=== PATIENT | female | born 1985 | race Caucasian/White ===

== ENCOUNTER → 2017-02-21 | Outpatient (CLI) | payer OTHER ==
[~2017-02-21] MED LIST: ETONMIS VAGRING; IBUP-1050 PO
== END | disposition home or self-care (01) ==
LOC: C.PATHSPEC 14:02
PROVIDERS: ATTEND Dermatology
DX: D23.5 Other benign neoplasm of skin of trunk (principal)

== ENCOUNTER → 2017-02-23 | Outpatient (CLI) | payer OTHER ==
--- NOTE | 2017-02-23 16:18 | DIAGNOSTIC IMAGING REPORT ---
CHEST 2 VIEWS ROUTINE CLINICAL HISTORY: R05 [id number] COMPARISON STUDY: No previous studies for comparison. FINDINGS: The bones soft tissues and hemidiaphragms are normal. The cardiomediastinal silhouette is normal. The lungs are clear. The pulmonary vasculature is normal. IMPRESSION: Negative chest. Electronically signed by: Willis Siu M.D. 02/23/2017 4:17 PM Dictated Date/Time: 02/23/2017 4:16 PM
== END | disposition home or self-care (01) ==
LOC: C.RAD1850 16:05
PROVIDERS: ATTEND Nurse Practitioner Adult Health
DX: R05 Cough (principal)

== ENCOUNTER → 2017-10-05 | Outpatient (CLI) | payer OTHER ==
[2017-10-09 06:11] LABS: CHLAMYDIA TRACH RNA*** NOT DETECTED (NOT DETECTED); GC (NEIS GONORRHOEAE)RNA** NOT DETECTED (NOT DETECTED)
== END | disposition home or self-care (01) ==
LOC: C.LABSPEC 17:38
PROVIDERS: ATTEND Nurse Practitioner Adult Health
DX: Z01.419 Encounter for gynecological examination (general) (routine) without abnormal findings (principal)

== ENCOUNTER → 2017-10-05 | Outpatient (CLI) | payer OTHER | END | disposition home or self-care (01) | LOC: C.PAPS 11:19 | PROVIDERS: ATTEND Nurse Practitioner Adult Health | DX: Z01.419 Encounter for gynecological examination (general) (routine) without abnormal findings (principal) ==

== ENCOUNTER 2022-04-16 15:12 | Inpatient (IN) ==
--- NOTE | 2022-04-16 16:22 | Emergency Department Note ---
Impression & Plan Multiple sclerosis, Occipital neuralgia of left side, Demyelinating disease, Alterations of sensations ED Provider Note NAME: SOLOMON BERRY AGE: 36 SEX: F : 1985 ARRIVES VIA: Walk-In INFORMANT: [Patient][, ] ED PROVIDER(S): [Andrea Torres MD] Chief Complaint: Headache, weakness HPI: Patient presents due to concern for neurologic symptoms. Patient states that this initially began of left-sided temporal lancinating pain. The patient had been seen in the emergency department as well as in the outpatient setting with neurology. The patient did receive prednisone and Flexeril. The patient states that the Flexeril made her more weak but the prednisone may have helped. The patient was scheduled to have an MRI with without contrast of the head and neck to be completed in 2 weeks time. The patient denies any falls or trauma. Patient Nuys any nausea or vomiting. Patient states that she went to squat down today and was unable to further get up. The patient feels as though she has difficulty with walking and has leg weakness. The patient denies any back pain. Patient states her current head related pain is 2 or 3 out of 10 and nonradiating. The patient also is describing some neuropathy which she stated was temperature difference to where hot felt cold and "felt hot on her right side. Patient denies any family history of MS or autoimmune disease. The patient denies any vision changes. Patient denies any known tick bites. ROS: See HPI for pertinent positives and negatives. A total of 10 systems were reviewed and otherwise negative. Past medical history: See below Surgical history: See below Social history: See below Physical Exam: GENERAL: NAD, wearing glasses, wearing a mask, non-toxic. EYE EXAM: Normal conjunctiva. PERRL, no anisocoria and EOM's grossly intact w/o pain. [OROPHARYNX: Moist mucus membranes. Grossly normal dentition. No exudate, posterior pharynx is clear, no tonsillar/uvular deviation or swelling. No cervical adenopathy, no submental, submandibular, or sublingual swelling.] NECK: Supple, no nuchal rigidity, no adenopathy, non-tender. No signs of meningismus. FROM of the neck with good chin to chest and neck extension. No stridor. LUNGS: Clear to auscultation. Normal chest wall mechanics. HEART: NSR, no MRG. ABDOMEN: Abdomen soft, non-tender, normo-active bowel sounds, no masses, no rebound or guarding. BACK: No CVA TTP. SKIN: No rashes and no bruising. UPPER EXTREMITIES: Upper extremities are grossly normal. LOWER EXTREMITIES: Grossly normal, no edema. NEURO EXAM: A&O x3, cranial nerves II-XII grossly intact, normal speech, moves all 4 extremities on command w/o issue. 5/5 strenght w/ hip flexion and knee flexed but 4/5 with hip flexion and knee extension; no saddle anesthesia or sensory deficits. Possible hyperreflexia of the patellas bilaterally. Differential diagnoses: Course: Patient was seen and evaluated the bedside. Full history physical exam was performed. EKG interpreted by me Normal sinus rhythm, rate of 72, normal intervals, normal axis, T wave version in V2. Imaging Studies: See Below [Cardiac monitoring: An order was placed for continuous cardiac monitoring. The monitor shows a rate of with rhythm.] MDM: Patient was seen due to atypical neurologic symptoms. Blood work is obtained along with CT of the head. The patient's blood work is unremarkable with normal inflammatory markers. Patient CT did show hypodensities. MRI with and without contrast MS protocol was ordered. Patient was reassessed patient was doing well and was informed of her blood work. MRI still pending. Patient's MRI does show concern for demyelinating disease likely consistent with multiple sclerosis. I did convey this to the patient she was quite distraught. Subsequently did discuss the patient's case with on-call neurology Dr. Montes De Oca recommended inpatient treatment neurology consult in the morning as well as MRIs of the thoracic and cervical spines. No lumbar spine. He did not recommend any steroi ds at this time. I did speak the on-call hospitalist Dr. Senior and the patient was admitted to the medicine service. Start Time: 1620 Reason: Patient with PMHx of JOCELYN and GERD and Fam Hx of ALS, pancreatic cancerunderwent ED Observation for atypical neurologic symptoms. Fam Hx: See below SocHx: See Below Assessment(s): 1420, 1800, 2230, 2245 Summary: Patient was seen due to concern for atypical neurologic symptoms. Blood was obtained along with CT of the head. Blood work is unremarkable. CT did show concerning hypodensities and given this concern and MRI of the brain was ordered to further of the patient's work-up. MRI of the brain did show concern for demyelinating disease likely consistent with multiple sclerosis. Neurology was consulted and recommended inpatient treatment at that time and I did speak with hospitalist patient was admitted to the medicine service after a prolonged emergency department work-up. Disposition: 04/16/22 @ 2300 Total Time: 6H 40MIN Past Med/Surg History Medical History JOCELYN (generalized anxiety disorder) GERD (gastroesophageal reflux disease) Surgical History H/O wisdom tooth extraction Hx of tonsillectomy S/P dilation and curettage TAB age 17 Family History Mother Dyslipidemia Father Pancreatic cancer Other ALS (amyotrophic lateral sclerosis) Denies family history of Sudden Ovarian cancer Prostate cancer Diabetes Heart disease Myocardial infarction Breast cancer Lung cancer Colorectal cancer Hypertension Stroke Social History Smoking Status: Never smoker Second Hand Exposure: No; Hx Alcohol Use: Yes Alcohol type: wine Hx Substance Use: No Preferred Language: Lebanese Communication Ability: Effective Visual Impairment: No Limitations Hearing Ability: Normal Crusher Operator Required: No Beliefs That Will Affect Care: None marital status: Current Living Situation: Spouse current occupational status: employed current occupation: Self Employed How many Children do You have: 0 Feels Safe at Home: Yes Childhood Exposure to Second-Hand Smoke: No caffeine: Yes Dental Care, Regularly: Yes Physical Activity Frequency: 5-6 Times per Week Seatbelt Use: always Sunscreen Use: Yes Assistive Devices: Glasses Allergies Allergies Allergy/AdvReac Type Severity Reaction Status Date / Time Sulfa (Sulfonamide Allergy Intermediate HIVES Verified 04/16/22 17:23 Antibiotics) adhesive tape Allergy Mild Rash Verified 04/17/22 02:14 Home Meds Home Medications Medication Instructions Recorded Confirmed loratadine 10 mg tablet 10 mg PO DAILY 06/14/21 04/16/22 lorazepam 0.5 mg tablet 0.5 mg PO DAILY PRN 03/30/22 04/16/22 fluoxetine 10 mg capsule 10 mg PO DAILY 04/09/22 04/16/22 Previous Rx's Medication Instructions Recorded norethindrone acetate 1 mg-ethinyl 1 tab PO DAILY #63 tab 06/21/21 estradiol 20 mcg tablet (Kelly) famotidine 40 mg tablet 40 mg PO PM #90 tab 03/30/22 cyclobenzaprine 10 mg tablet 10 mg PO TID PRN #14 tab 04/09/22 cholecalciferol (vitamin D3) 1,250 50,000 unit PO .COMPLEX 90 Days 04/13/22 mcg (50,000 unit) capsule #12 cap Results & Data (ED) Vital Signs Vital Signs - 24 hr 04/16/22 15:15 04/16/22 16:30 04/16/22 16:38 Temperature 36.7 C Temperature Source Skin Pulse Rate 81 82 Pulse Rhythm Regular Pulse Strength Normal Respiratory Rate 20 12 Respiratory Effort / Characteristics Non-Labored Spontaneous Respiratory Depth Normal Blood Pressure 150/70 H 154/78 H Blood Pressure Mean 96 103 Pulse Oximetry 99 100 100 Oxygen Delivery Method Room Air Room Air Sepsis Recent Fever Within 48 Hours No Sepsis New/Unexplained Change in Mental Status N/A Sepsis Action Taken by Nursing No Action Required 04/16/22 17:30 04/16/22 18:00 04/16/22 18:31 Temperature Temperature Source Pulse Rate 64 65 73 Pulse Rhythm Pulse Strength Respiratory Rate 14 18 13 Respiratory Effort / Characteristics Respiratory Depth Blood Pressure 122/69 124/75 109/80 Blood Pressure Mean 86 91 89 Pulse Oximetry 95 100 99 Oxygen Delivery Method Sepsis Recent Fever Within 48 Hours Sepsis New/Unexplained Change in Mental Status Sepsis Action Taken by Nursing 04/16/22 19:00 04/16/22 21:04 04/16/22 21:30 Temperature Temperature Source Pulse Rate 60 76 83 Pulse Rhythm Pulse Strength Respiratory Rate 17 17 16 Respiratory Effort / Characteristics Respiratory Depth Blood Pressure 129/73 126/70 137/68 Blood Pressure Mean 91 88 91 Pulse Oximetry 100 97 98 Oxygen Delivery Method Sepsis Recent Fever Within 48 Hours Sepsis New/Unexplained Change in Mental Status Sepsis Action Taken by Nursing 04/16/22 22:30 Temperature Temperature Source Pulse Rate 68 Pulse Rhythm Pulse Strength Respiratory Rate 15 Respiratory Effort / Characteristics Respiratory Depth Blood Pressure 122/71 Blood Pressure Mean 88 Pulse Oximetry 100 Oxygen Delivery Method Sepsis Recent Fever Within 48 Hours Sepsis New/Unexplained Change in Mental Status Sepsis Action Taken by [facility] Medications Current Medication List: was personally reviewed by me Laboratory Data Attestation: I reviewed the patient's lab results. Result diagrams: 04/16/22 16:20 04/16/22 16:20 Lab Results 04/16/22 04/16/22 04/16/22 Range/Units 16:20 16:20 16:20 WBC 7.79 (4.8-10.8) K/uL RBC 4.41 (4.2-5.4) M/uL Hgb 13.6 (12.0-16.0) g/dL Hct 41.0 (37-47) % MCV 93.0 (80-100) fL MCH 30.8 (25-34) pg MCHC 33.2 (32-36) g/dL RDW Std Deviation 43.7 (36.4-46.3) fL RDW Coeff of Leonardo 12.8 (11.5-14.5) % Plt Count 283 (130-400) K/uL MPV 11.8 H (7.4-10.4) fL Immature Gran % (Auto) 0.3 % Neut % (Auto) 62.6 % Lymph % (Auto) 29.0 % [place] % (Auto) 7.3 % Eos % (Auto) 0.5 % Baso % (Auto) 0.3 % Neut # (Auto) 4.88 (1.4-6.5) K/uL Lymph # (Auto) 2.26 (1.2-3.4) K/uL [place] # (Auto) 0.57 (0.11-0.59) K/uL Eos # (Auto) 0.04 (0-0.5) K/uL Baso # (Auto) 0.02 (0-0.2) K/uL Immature Gran # (Auto) 0.02 (0.00-0.02) K/uL ESR 6 (0-20) mm/hr Sodium 137 (136-145) mmol/L Potassium 3.9 (3.5-5.1) mmol/L Chloride 104 (98-107) mmol/L Carbon Dioxide 25 (21-32) mmol/L Anion Gap 8 (3-11) BUN 9 (6-23) mg/dl Creatinine 0.87 (0.6-1.2) mg/dl Est Cr Clr Drug Dosing 92.5 ml/min Est GFR ( Amer) 98.6 ml/min Est GFR (Non-Af Amer) 85.1 ml/min BUN/Creatinine Ratio 10.3 (10-20) Glucose 134 H (70-99(Fasting)) mg/dl Calcium 9.0 (8.5-10.1) mg/dl Total Bilirubin 0.6 (0.2-1.0) mg/dl AST 19 (13-39) U/L ALT 24 (7-52) U/L Alkaline Phosphatase 35 (34-104) U/L C-Reactive Protein < 0.50 (0-0.5) mg/dl Total Protein 7.4 (6.0-8.3) gm/dl Albumin 4.2 (3.4-5.0) gm/dl Globulin 3.2 (2.5-4.0) gm/dl Albumin/Globulin Ratio 1.3 (0.9-2) TSH (0.300-4.500) uIu/ml Urine Color Urine Appearance (Clear) Urine pH (4.5-7.5) Ur Specific [place] (1.000-1.030) Urine Protein (Negative) Urine Glucose (UA) (Negative) Urine Ketones (Negative) Urine Blood (Negative) Urine Nitrite (Negative) Urine Bilirubin (Negative) Urine Urobilinogen (Negative) Ur Leukocyte Esterase (Negative) Lyme Disease IgG Ab (Negative) Lyme Disease IgM Ab (Negative) SARS-CoV-2, RNA, NAAT (NEGATIVE) 04/16/22 04/16/22 04/16/22 Range/Units 16:20 16:20 17:42 WBC (4.8-10.8) K/uL RBC (4.2-5.4) M/uL Hgb (12.0-16.0) g/dL Hct (37-47) % MCV (80-100) fL MCH (25-34) pg MCHC (32-36) g/dL RDW Std Deviation (36.4-46.3) fL RDW Coeff of Leonardo (11.5-14.5) % Plt Count (130-400) K/uL MPV (7.4-10.4) fL Immature Gran % (Auto) % Neut % (Auto) % Lymph % (Auto) % [place] % (Auto) % Eos % (Auto) % Baso % (Auto) % Neut # (Auto) (1.4-6.5) K/uL Lymph # (Auto) (1.2-3.4) K/uL [place] # (Auto) (0.11-0.59) K/uL Eos # (Auto) (0-0.5) K/uL Baso # (Auto) (0-0.2) K/uL Immature Gran # (Auto) (0.00-0.02) K/uL ESR (0-20) mm/hr Sodium (136-145) mmol/L Potassium (3.5-5.1) mmol/L Chloride (98-107) mmol/L Carbon Dioxide (21-32) mmol/L Anion Gap (3-11) BUN (6-23) mg/dl Creatinine (0.6-1.2) mg/dl Est Cr Clr Drug Dosing ml/min Est GFR ( Amer) ml/min Est GFR (Non-Af Amer) ml/min BUN/Creatinine Ratio (10-20) Glucose (70-99(Fasting)) mg/dl Calcium (8.5-10.1) mg/dl Total Bilirubin (0.2-1.0) mg/dl AST (13-39) U/L ALT (7-52) U/L Alkaline Phosphatase (34-104) U/L C-Reactive Protein (0-0.5) mg/dl Total Protein (6.0-8.3) gm/dl Albumin (3.4-5.0) gm/dl Globulin (2.5-4.0) gm/dl Albumin/Globulin Ratio (0.9-2) TSH 2.452 (0.300-4.500) uIu/ml Urine Color Yellow Urine Appearance Clear (Clear) Urine pH 6.5 (4.5-7.5) Ur Specific [place] 1.005 (1.000-1.030) Urine Protein Negative (Negative) Urine Glucose (UA) Negative (Negative) Urine Ketones Negative (Negative) Urine Blood Negative (Negative) Urine Nitrite Negative (Negative) Urine Bilirubin Negative (Negative) Urine Urobilinogen Negative (Negative) Ur Leukocyte Esterase Negative (Negative) Lyme Disease IgG Ab Negative (Negative) Lyme Disease IgM Ab Negative (Negative) SARS-CoV-2, RNA, NAAT (NEGATIVE) 04/16/22 Range/Units 23:13 WBC (4.8-10.8) K/uL RBC (4.2-5.4) M/uL Hgb (12.0-16.0) g/dL Hct (37-47) % MCV (80-100) fL MCH (25-34) pg MCHC (32-36) g/dL RDW Std Deviation (36.4-46.3) fL RDW Coeff of Leonardo (11.5-14.5) % Plt Count (130-400) K/uL MPV (7.4-10.4) fL Immature Gran % (Auto) % Neut % (Auto) % Lymph % (Auto) % [place] % (Auto) % Eos % (Auto) % Baso % (Auto) % Neut # (Auto) (1.4-6.5) K/uL Lymph # (Auto) (1.2-3.4) K/uL [place] # (Auto) (0.11-0.59) K/uL Eos # (Auto) (0-0.5) K/uL Baso # (Auto) (0-0.2) K/uL Immature Gran # (Auto) (0.00-0.02) K/uL ESR (0-20) mm/hr Sodium (136-145) mmol/L Potassium (3.5-5.1) mmol/L Chloride (98-107) mmol/L Carbon Dioxide (21-32) mmol/L Anion Gap (3-11) BUN (6-23) mg/dl Creatinine (0.6-1.2) mg/dl Est Cr Clr Drug Dosing ml/min Est GFR ( Amer) ml/min Est GFR (Non-Af Amer) ml/min BUN/Creatinine Ratio (10-20) Glucose (70-99(Fasting)) mg/dl Calcium (8.5-10.1) mg/dl Total Bilirubin (0.2-1.0) mg/dl AST (13-39) U/L ALT (7-52) U/L Alkaline Phosphatase (34-104) U/L C-Reactive Protein (0-0.5) mg/dl Total Protein (6.0-8.3) gm/dl Albumin (3.4-5.0) gm/dl Globulin (2.5-4.0) gm/dl Albumin/Globulin Ratio (0.9-2) TSH (0.300-4.500) uIu/ml Urine Color Urine Appearance (Clear) Urine pH (4.5-7.5) Ur Specific [place] (1.000-1.030) Urine Protein (Negative) Urine Glucose (UA) (Negative) Urine Ketones (Negative) Urine Blood (Negative) Urine Nitrite (Negative) Urine Bilirubin (Negative) Urine Urobilinogen (Negative) Ur Leukocyte Esterase (Negative) Lyme Disease IgG Ab (Negative) Lyme Disease IgM Ab (Negative) SARS-CoV-2, RNA, NAAT NEGATIVE (NEGATIVE) Administered Medications Acetaminophen (Acetaminophen 325 Mg Tab) 650 mg PO Q4H PRN PRN Reason: pain/fever Stop: 05/17/22 01:37 Last Admin: 04/17/22 06:05 Dose: 650 mg Documented by: [id number] Methylprednisolone 1,000 mg/ (Dextrose) 266 mls @ 266 mls/hr IV DAILY ROXANA Stop: 04/21/22 09:59 Last Infusion: 04/17/22 10:57 Dose: 0 mls/hr Documented by: [id number] Admin: 04/17/22 09:47 Dose: 266 mls/hr Documented by: [id number] Loratadine (Loratadine 10 Mg Tab) 10 mg PO DAILY ROXANA Stop: 05/17/22 08:59 Last Admin: 04/17/22 08:51 Dose: 10 mg Documented by: [id number] Miscellaneous (Order Awaiting Action: Norethindrone Ac-Eth Estradiol [Kelly 12/16 ()] 1-20 Mg-Mcg Tab) 1 ea N/A QS ROXANA Stop: 05/17/22 07:59 Last Admin: 04/17/22 08:51 Dose: Not Given Documented by: [id number] Discontinued Medications Acetaminophen (Acetaminophen 500 Mg Tab) 1,000 mg PO NOW STA Stop: 04/16/22 16:53 Last Admin: 04/16/22 16:59 Dose: 1,000 mg Documented by: [id number] Fluoxetine HCl (Fluoxetine Hcl 10 Mg Cap) 10 mg PO DAILY ROXANA Stop: 05/17/22 08:59 Last Admin: 04/17/22 09:10 Dose: Not Given Documented by: [id number] Gadobutrol (Gadobutrol 65ml Vial) 7 ml IV ONCE ONE Stop: 04/16/22 20:12 Last Admin: 04/16/22 20:11 Dose: 7 ml Documented by: [id number] Sodium Chloride (Nss 1000ml) 1,000 mls @ 999 mls/hr IV .Q1H1M ROXANA Stop: 04/16/22 17:45 Last Infusion: 04/16/22 17:54 Dose: 0 mls/hr Documented by: [id number] Admin: 04/16/22 16:51 Dose: 999 mls/hr Documented by: [id number] Ketorolac Tromethamine (Ketorolac Tromethamine 15 Mg/Ml Vial) 10 mg IV NOW STA Stop: 04/16/22 16:53 Last Admin: 04/16/22 16:59 Dose: 10 mg Documented by: [id number] Lorazepam (Lorazepam 2 Mg/1 Ml Vial) 0.5 mg IV NOW STA Stop: 04/16/22 23:11 Last Admin: 04/16/22 23:17 Dose: 0.5 mg Documented by: [id number] Lorazepam (Lorazepam 0.5 Mg Tab) 0.5 mg PO DAILY PRN PRN Reason: Anxiety Stop: 05/17/22 01:37 Last Admin: 04/17/22 06:05 Dose: 0.5 mg Documented by: [id number] Ondansetron HCl (Ondansetron Inj 2 Mg/Ml 2 Ml Vial) 4 mg IV NOW STA Stop: 04/16/22 16:53 Last Admin: 04/16/22 17:00 Dose: 4 mg Documented by: [id number] Imaging Data Radiologist's Impression: Brain MRI 04/16/22 18:22 MR brain MS wo/w con CLINICAL HISTORY: Neurologic symptoms. COMPARISON STUDY: Head CT April 16, 2022. TECHNIQUE: Utilizing a 1.5 Nisha magnet and dedicated coil, multiplanar, multi echo imaging of the brain was performed pre and postcontrast administration according to the multiple sclerosis protocol. Intravenous injection of 7 cc of Gadavist was uneventful. FINDINGS: Note is made of numerous supratentorial and infratentorial T2 hyperintense foci. The largest is a 2.2 cm lesion within the right centrum semiovale ovale on axial T2 sequence image . Many of these lesions demonstrate enhancement. The enhancement measures up to 1.2 cm in extent. A 6 mm lesion within the right anterior aspect of the medulla is present. A T2 hyperint ense lesion within the left aspect of the upper cord at the C2 level extends for 2.5 cm. This lesion enhances. There is no significant mass effect. No midline shift is present. Ventricular system is normal. Basal cisterns are patent. There are no extra-axial collections. Flow-voids for the major intracranial vessels are present. There is possible increased T2 signal within the intraorbital portion of the left optic nerve shown on coronal FLAIR reformatted image 88 of 429. Evaluation for enhancement is suboptimal on this nondedicated orbit exam. Calvarial signal is within normal limits. IMPRESSION: Numerous T2 hyperintense lesions within the brain and upper cervical cord consistent with demyelination. Many of these plaques enhance consistent with active demyelination. The findings are highly suggestive of multiple sclerosis. Possible left-sided optic neuritis. ACT 112: Negative or not required by law. Electronically signed by: Nishant Wren M.D. 04/17/2022 7:24 AM Chest X-Ray 04/16/22 16:38 XR chest 1V portable CLINICAL HISTORY: Weakness. COMPARISON STUDY: Chest radiograph June 16, 2018. FINDINGS: Lung volumes are normal. Lungs are clear. There is no pneumothorax or pleural effusion. Cardiac size is normal. Mediastinal contours are normal. There is no evidence for pulmonary edema. IMPRESSION: No acute cardiopulmonary findings. ACT 112: Negative or not required by law. Electronically signed by: Nishant Wren M.D. 04/16/2022 5:[address] 04/16/22 16:38 CT OF THE HEAD WITHOUT CONTRAST CLINICAL HISTORY: Left temporal pain, right sided cold/hot sensations COMPARISON STUDY: No previous studies for comparison. CT DOSE: 614.27 mGy.cm TECHNIQUE: Helical axial images of the head were obtained without IV contrast. Automated exposure control was utilized for the study. A dose lowering technique was utilized adhering to the principles of ALARA. FINDINGS: No acute intracranial hemorrhage, midline shift or mass effect is present. There is a 2.2 cm hypodensity within the white matter of the right fron cris lobe, involving the medina radiata. An additional 1.1 cm white matter hypodensity adjacent to the temporal horn of the right lateral ventricle is noted. The ventricular system is unremarkable. The basal cisterns are patent. No extra-axial collections are present. There are no findings to suggest acute dural sinus thrombosis or acute territorial infarct. No significant calvarial abnormalities are present. Visualized portions of the sinuses and mastoid air cells are clear. IMPRESSION: A few white matter hypodensities. Although nonspecific, these raise the possibility of a demyelinating process such as multiple sclerosis. An MRI of the brain with and without contrast MS protocol could be obtained for further evaluation. ACT 112: Negative or not required by law. Electronically signed by: Nishant Wren M.D. 04/16/2022 5:32 PM Brain MRI 04/16/22 18:22 MR brain MS wo/w con CLINICAL HISTORY: Neurologic symptoms. COMPARISON STUDY: Head CT April 16, 2022. TECHNIQUE: Utilizing a 1.5 Nisha magnet and dedicated coil, multiplanar, multi echo imaging of the brain was performed pre and postcontrast administration according to the multiple sclerosis protocol. Intravenous injection of 7 cc of Gadavist was uneventful. FINDINGS: Note is made of numerous supratentorial and infratentorial T2 hyperintense foci. The largest is a 2.2 cm lesion within the right centrum semiovale ovale on axial T2 sequence image 17 of 24. Many of these lesions demonstrate enhancement. The enhancement measures up to 1.2 cm in extent. A 6 mm lesion within the right anterior aspect of the medulla is present. A T2 hyperintense lesion within the left aspect of the upper cord at the C2 level extends for 2.5 cm. This lesion enhances. There is no significant mass effect. No midline shift is present. Ventricular system is normal. Basal cisterns are patent. There are no extra-axial collections. Flow-voids for the major intracranial vessels are present. There is possible increased T2 signal within the intraorbital portion of the left optic nerve shown on coronal FLAIR reformatted image 88 of 429. Evaluation for enhancement is suboptimal on this nondedicated orbit exam. Calvarial signal is within normal limits. IMPRESSION: Numerous T2 hyperintense lesions within the brain and upper cervical cord consistent with demyelination. Many of these plaques enhance consistent with active demyelination. The findings are highly suggestive of multiple sclerosis. Possible left-sided optic neuritis. ACT 112: Negative or not required by law. Electronically signed by: Nishant Wren M.D. 04/17/2022 7:24 AM Discharge Plan Visit Data Chief Complaint: Pain (Generalized) Stated Complaint: NEUROPATHY ED Provider: Andrea Torres Discharge Problem: Multiple sclerosis, Occipital neuralgia of left side, Demyelinating disease, Alterations of sensations Patient Disposition: Admitted As Inpatient Discharge Instructions Interventions: ED Discharge Assessment Last Done: 04/17/22 00:50
[2022-04-16] MEDS ORDERED: SODIUM CHLORIDE 0.9% 1000ML 1,000 ML IV SCH (16:45)
[2022-04-16 16:52] LABS: Basophils # (auto) 0.02 K/uL (0-0.2); Basophils % (auto) 0.3 %; Eosinophils # (auto) 0.04 K/uL (0-0.5); Eosinophils % (auto) 0.5 %; Hemoglobin 13.6 g/dL (12.0-16.0); Immature Granulocytes # (auto) 0.02 K/uL (0.00-0.02); Immature Granulocytes % (auto) 0.3 %; Lymphocytes # (auto) 2.26 K/uL (1.2-3.4); Mean Corpuscular Hemoglobin 30.8 pg (25-34); Mean Corpuscular Hgb Conc 33.2 g/dL (32-36); Mean Platelet Volume 11.8 fL (7.4-10.4); Monocytes # (auto) 0.57 K/uL (0.11-0.59); Monocytes % (auto) 7.3 %; Neutrophils # (auto) 4.88 K/uL (1.4-6.5); Neutrophils % (auto) 62.6 %; Platelet Count 283 K/uL (130-400); RDW Coefficient of Variation 12.8 % (11.5-14.5); RDW Standard Deviation 43.7 fL (36.4-46.3); Red Blood Count 4.41 M/uL (4.2-5.4); White Blood Count 7.79 K/uL (4.8-10.8)
[2022-04-16] MEDS ORDERED: KETOROLAC TROMETHAMINE 15 MG/ML VIAL IV STA (16:52)
[2022-04-16] MEDS ORDERED: ONDANSETRON INJ 2 MG/ML 2 ML VIAL IV STA (16:52)
[2022-04-16] MEDS ORDERED: ACETAMINOPHEN 500 MG TAB PO STA (16:52)
[2022-04-16 17:11] LABS: Alanine Aminotransferase 24 U/L (7-52); Albumin Globulin Ratio 1.3 (0.9-2); Albumin Level 4.2 gm/dl (3.4-5.0); Alkaline Phosphatase 35 U/L (34-104); Anion Gap 8 (3-11); Aspartate Aminotransferase 19 U/L (13-39); BUN Creatinine Ratio 10.3 (10-20); Bilirubin,Total 0.6 mg/dl (0.2-1.0); Blood Urea Nitrogen 9 mg/dl (6-23); C Reactive Protein < 0.50 mg/dl (0-0.5); Carbon Dioxide 25 mmol/L (21-32); Chloride 104 mmol/L (98-107); Creatinine Clr Calc Pharmacy 92.5 ml/min; Est GFR (African American) 98.6 ml/min; Est GFR (Non-African American) 85.1 ml/min; Globulin 3.2 gm/dl (2.5-4.0); Glucose 134 mg/dl (70-99(Fasting)); Potassium 3.9 mmol/L (3.5-5.1); Sodium 137 mmol/L (136-145); Total Protein 7.4 gm/dl (6.0-8.3)
--- NOTE | 2022-04-16 17:34 | CT Scan Report ---
CT OF THE HEAD WITHOUT CONTRAST CLINICAL HISTORY: Left temporal pain, right sided cold/hot sensations COMPARISON STUDY: No previous studies for comparison. CT DOSE: 614.27 mGy.cm TECHNIQUE: Helical axial images of the head were obtained without IV contrast. Automated exposure con trol was utilized for the study. A dose lowering technique was utilized adhering to the principles o f ALARA. FINDINGS: No acute intracranial hemorrhage, midline shift or mass effect is present. There is a 2.2 c m hypodensity within the white matter of the right frontal lobe, involving the medina radiata. An add itional 1.1 cm white matter hypodensity adjacent to the temporal horn of the right lateral ventricle is noted. The ventricular system is unremarkable. The basal cisterns are patent. No extra-axial colle ctions are present. There are no findings to suggest acute dural sinus thrombosis or acute territoria l infarct. No significant calvarial abnormalities are present. Visualized portions of the sinuses and mastoid air cells are clear. IMPRESSION: A few white matter hypodensities. Although nonspecific, these raise the possibility of a demyelinating process such as multiple sclerosis. An MRI of the brain with and without contrast MS p rotocol could be obtained for further evaluation. ACT 112: Negative or not required by law. Electronically signed by: Nishant Wren M.D. 04/16/2022 5:32 PM
--- NOTE | 2022-04-16 17:34 | XRay Report ---
XR chest 1V portable CLINICAL HISTORY: Weakness. COMPARISON STUDY: Chest radiograph June 16, 2018. FINDINGS: Lung volumes are normal. Lungs are clear. There is no pneumothorax or pleural effusion. Car diac size is normal. Mediastinal contours are normal. There is no evidence for pulmonary edema. IMPRESSION: No acute cardiopulmonary findings. ACT 112: Negative or not required by law. Electronically signed by: Nishant Wren M.D. 04/16/2022 5:33 PM
[2022-04-16 17:36] LABS: Lyme Ab IgG w/WB Rflx Negative (Negative); Lyme Ab IgM w/WB Rflx Negative (Negative)
[2022-04-16 17:53] LABS: Appearance Urine Clear (Clear); Bilirubin Urine Negative (Negative); Blood Urine Negative (Negative); Color Urine Yellow; Glucose Urine UA Negative (Negative); Ketones Urine Negative (Negative); Leukocyte Esterase Urine Negative (Negative); Nitrite Urine Negative (Negative); Protein Urine Negative (Negative); Specific Gravity Urine 1.005 (1.000-1.030); Urobilinogen Urine Negative (Negative); pH Urine 6.5 (4.5-7.5)
[2022-04-16] MEDS ORDERED: GADOBUTROL 65ML VIAL IV ONE (20:11)
[2022-04-16] MEDS ORDERED: LORazepam 2 MG/1 ML VIAL IV STA (23:10)
--- NOTE | 2022-04-17 00:39 | History & Physical Report ---
Date of Service April 17, 2022 Assessment & Plan (1) Demyelinating disease: Plan: 36yo female presenting with complaint of paresthesias, LE weakness, difficulty with ambulation, some minor changes in speech. Symptoms have been ongoing and evolving since 04/07/22. Patient had previous episode of unexplained neurological complaints in October 2021. TSH WNL, Lyme serology WNL. Labs are unremarkable. Imaging as above with findings concerning for acute demyelinating disease such as MS. -Observation to medical -MRI C/T spine ordered -Neurology consultation - further workup to include possible LP as well as initiation of disease modifying therapy per Neurology expertise -Will check CK as well as JOSTIN (2) GERD (gastroesophageal reflux disease): Plan: Chronic. Stable on medications -Continue Famotidine 40mg po q daily (3) Anxiety: Plan: Chronic -Continue Fluoxetine 10mg po daily -Continue Ativan as needed Plan: F/E/N - Heplock. Electroltyes WNL. Regular diet as tolerated Ppx - Low risk for DVT Code - Full Dispo - Observation to medical History of Present Illness Chief Complaint: Paresthesias Primary Care Provider: Josiane Guevara MD Candace Ramon is a 36yo female with history of anxiety, GERD presenting with complaint of paresthesias, difficulty ambulating. Found to have demyeli nation on brain MRI concerning for MS. Patient first developed symptoms on 11/26/21. She had neuropathy "pins and needles" involving the side of her left foot which traveled up her leg then to involve majority of left lower extremity and side. She had an MRI of the Lumbar Spine performed at that time which revealed moderate disc space narrowing with a 4mm broad-based disc protrusion/herniation at L5-S1 without nerve root impingement. Her symptoms lasted approximately 2-3 weeks. She was prescribed Medrol dose pack x 2 with resolution. Her current symptoms began on April 07. She first had a lancinating pain behind the left hear, temporal and occipital region. She was seen in the ER on 04/09/22 with these complaints and was diagnosed with occipital neuralgia. She was prescribed Flexeril and Prednisone. She felt quite poorly after taking 1/2 of a Flexeril tab so did not continue this medication. She did finish her Prednisone (60mg x 4 days). Her symptoms persisted. She was seen by [facility] on 04/14/22 and was ordered an MRI of the brain as well as EMG (to be completed in 2 weeks and 3 weeks, respectively). Over the last two days her symptoms have been persistent. She reports neuropathy of her RUE, RLE and right abdomen as well as poor balance,leg weakness and difficulty with ambulation. She feels that her legs are heavy and slow moving "like walking through concrete". Her sensation in her RUE is diminished but touch to the right side of her abdomen and RLE feels burning and uncomfortable. She had some alteration in temperature sensation where hot felt cold and cold felt hot. This morning she was having difficulty getting off the floor. She called her PCP and was instructed to come to the ER. She denies fever, chills, neck pain or trauma, chest pain, SOB, cough, abdominal pain, nausea, vomiting, diarrhea or constipation. She has had poor appetite this week. She denies visual disturbance, difficulty swallowing, urinary or fecal retention or loss. She does feel that she is speaking more slowly and she mixed up words at work several times this week. No additional complaints. No recent illness. No medication changes. No recreational substance use. She did receive her Covid-19 vaccination with her booster in August 2021. ER Course: Tylenol, Toradol, Ativan, NSS x 1L Allergies Allergy/AdvReac Type Severity Reaction Status Date / Time Sulfa (Sulfonamide Allergy Intermediate HIVES Verified 04/16/22 17:23 Antibiotics) SURGICAL TAPE Allergy Intermediate Rash Uncoded 04/16/22 17:23 Home Medications Medication Instructions Recorded Confirmed Type loratadine 10 mg tablet 10 mg PO DAILY 06/14/21 04/16/22 History norethindrone acetate 1 mg-ethinyl 1 tab PO DAILY #63 tab 06/21/21 04/16/22 Rx estradiol 20 mcg tablet (Kelly) famotidine 40 mg tablet 40 mg PO PM #90 tab 03/30/22 04/16/22 Rx lorazepam 0.5 mg tablet 0.5 mg PO DAILY PRN 03/30/22 04/16/22 History cyclobenzaprine 10 mg tablet 10 mg PO TID PRN #14 tab 04/09/22 04/16/22 Rx fluoxetine 10 mg capsule 10 mg PO DAILY 04/09/22 04/16/22 History cholecalciferol (vitamin D3) 1,250 50,000 unit PO .COMPLEX 90 Days 04/13/22 04/16/22 Rx mcg (50,000 unit) capsule #12 cap Past Med/Surg History Medical History (Updated 04/17/22 @ 00:32 by Denice Senior DO) JOCELYN (generalized anxiety disorder) GERD (gastroesophageal reflux disease) Surgical History (Updated 04/17/22 @ 00:24 by Denice Senior DO) H/O wisdom tooth extraction Hx of tonsillectomy S/P dilation and curettage TAB age 17 Family History (Updated 04/17/22 @ 00:24 by Denice Senior DO) Mother Dyslipidemia Father Pancreatic cancer Other ALS (amyotrophic lateral sclerosis) Denies family history of Sudden Ovarian cancer Prostate cancer Diabetes Heart disease Myocardial infarction Breast cancer Lung cancer Colorectal cancer Hypertension Stroke Social History Smoking Status: Never smoker Second Hand Exposure: No; Hx Alcohol Use: Yes Hx Substance Use: No Preferred Language: Kittitian Communication Ability: Effective Visual Impairment: No Limitations Hearing Ability: Normal Machine Stemmer Required: No marital status: Current Living Situation: Spouse current occupational status: employed current occupation: Self Employed How many Children do You have: 0 Feels Safe at Home: Yes Childhood Exposure to Second-Hand Smoke: No caffeine: Yes Dental Care, Regularly: Yes Physical Activity Frequency: 5-6 Times per Week Seatbelt Use: always Sunscreen Use: Yes Assistive Devices: Contacts and Glasses Review of Systems Review of Systems: All systems reviewed & are unremarkable except as noted in HPI & below Physical Exam Physical Exam: General: patient resting comfortably, NAD, non-toxic in appearance, AA&O x 4, anxious and tearful, at bedside Skin: warm, dry, intact, no rashes or lesions HEENT: NC/AT, PERRL, EOMI, anicteric sclera, conjunctiva without injection, external ear normal to inspection and nontender, nares patent, moist mucus membranes, dentition intact, no oropharyngeal lesions, neck supple, trachea midline, no LAD, no thyromegaly, no JVD Heart: +S1/S2, regular, no m/r/g Lungs: equal air entry bilaterally, no rales/rhonchi/wheezes Abd: +BS, soft, NT/ND, no masses/organomegaly/ascites Ext: warm, 2+ pulses in UE/LE bilaterally, no clubbing/cyanosis or edema Neuro: CN grossly intact, sensation altered at RUE, right torso/abdomen and RLE. MS 4/5 with flexion and extension of forearms as well as flexion and extension of feet, all else 5/5 intact Results & Data Results & Data ([facility]) Vital Signs (Past 12 Hours) Vital Signs Temp Pulse Resp BP Pulse Ox 04/16/22 22:30 68 15 122/71 100 04/16/22 21:30 83 16 137/68 98 04/16/22 21:04 76 17 126/70 97 04/16/22 19:00 60 17 129/73 100 04/16/22 18:31 73 13 109/80 99 04/16/22 18:00 65 18 124/75 100 04/16/22 17:30 64 14 122/69 95 04/16/22 16:38 100 04/16/22 16:30 82 12 154/78 H 100 04/16/22 15:15 36.7 C 81 20 150/70 H 99 Laboratory Results Laboratory Results WBC 7.79 K/uL (4.8-10.8) 04/16/22 16:20 RBC 4.41 M/uL (4.2-5.4) 04/16/22 16:20 Hgb 13.6 g/dL (12.0-16.0) 04/16/22 16:20 Hct 41.0 % (37-47) 04/16/22 16:20 MCV 93.0 fL (80-100) 04/16/22 16:20 MCH 30.8 pg (25-34) 04/16/22 16:20 MCHC 33.2 g/dL (32-36) 04/16/22 16:20 RDW Std Deviation 43.7 fL (36.4-46.3) 04/16/22 16:20 RDW Coeff of Leonardo 12.8 % (11.5-14.5) 04/16/22 16:20 Plt Count 283 K/uL (130-400) 04/16/22 16:20 MPV 11.8 fL (7.4-10.4) H 04/16/22 16:20 Immature Gran % (Auto) 0.3 % 04/16/22 16:20 Neut % (Auto) 62.6 % 04/16/22 16:20 Lymph % (Auto) 29.0 % 04/16/22 16:20 [place] % (Auto) 7.3 % 04/16/22 16:20 Eos % (Auto) 0.5 % 04/16/22 16:20 Baso % (Auto) 0.3 % 04/16/22 16:20 Neut # (Auto) 4.88 K/uL (1.4-6.5) 04/16/22 16:20 Lymph # (Auto) 2.26 K/uL (1.2-3.4) 04/16/22 16:20 [place] # (Auto) 0.57 K/uL (0.11-0.59) 04/16/22 16:20 Eos # (Auto) 0.04 K/uL (0-0.5) 04/16/22 16:20 Baso # (Auto) 0.02 K/uL (0-0.2) 04/16/22 16:20 Immature Gran # (Auto) 0.02 K/uL (0.00-0.02) 04/16/22 16:20 ESR 6 mm/hr (0-20) 04/16/22 16:20 Sodium 137 mmol/L (136-145) 04/16/22 16:20 Potassium 3.9 mmol/L (3.5-5.1) 04/16/22 16:20 Chloride 104 mmol/L (98-107) 04/16/22 16:20 Carbon Dioxide 25 mmol/L (21-32) 04/16/22 16:20 Anion Gap 8 (3-11) 04/16/22 16:20 BUN 9 mg/dl (6-23) 04/16/22 16:20 Creatinine 0.87 mg/dl (0.6-1.2) 04/16/22 16:20 Est Cr Clr Drug Dosing 92.5 ml/min 04/16/22 16:20 Est GFR ( Amer) 98.6 ml/min 04/16/22 16:20 Est GFR (Non-Af Amer) 85.1 ml/min 04/16/22 16:20 BUN/Creatinine Ratio 10.3 (10-20) 04/16/22 16:20 Glucose 134 mg/dl (70-99(Fasting)) H 04/16/22 16:20 Calcium 9.0 mg/dl (8.5-10.1) 04/16/22 16:20 Total Bilirubin 0.6 mg/dl (0.2-1.0) 04/16/22 16:20 AST 19 U/L (13-39) 04/16/22 16:20 ALT 24 U/L (7-52) 04/16/22 16:20 Alkaline Phosphatase 35 U/L (34-104) 04/16/22 16:20 C-Reactive Protein < 0.50 mg/dl (0-0.5) 04/16/22 16:20 Total Protein 7.4 gm/dl (6.0-8.3) 04/16/22 16:20 Albumin 4.2 gm/dl (3.4-5.0) 04/16/22 16:20 Globulin 3.2 gm/dl (2.5-4.0) 04/16/22 16:20 Albumin/Globulin Ratio 1.3 (0.9-2) 04/16/22 16:20 TSH 2.452 uIu/ml (0.300-4.500) 04/16/22 16:20 Urine Color Yellow 04/16/22 17:42 Urine Appearance Clear (Clear) 04/16/22 17:42 Urine pH 6.5 (4.5-7.5) 04/16/22 17:42 Ur Specific [place] 1.005 (1.000-1.030) 04/16/22 17:42 Urine Protein Negative (Negative) 04/16/22 17:42 Urine Glucose (UA) Negative (Negative) 04/16/22 17:42 Urine Ketones Negative (Negative) 04/16/22 17:42 Urine Blood Negative (Negative) 04/16/22 17:42 Urine Nitrite Negative (Negative) 04/16/22 17:42 Urine Bilirubin Negative (Negative) 04/16/22 17:42 Urine Urobilinogen Negative (Negative) 04/16/22 17:42 Ur Leukocyte Esterase Negative (Negative) 04/16/22 17:42 Lyme Disease IgG Ab Negative (Negative) 04/16/22 16:20 Lyme Disease IgM Ab Negative (Negative) 04/16/22 16:20 SARS-CoV-2, RNA, NAAT NEGATIVE (NEGATIVE) 04/16/22 23:13 Impressions Chest X-Ray 04/16/22 16:38 XR chest 1V portable CLINICAL HISTORY: Weakness. COMPARISON STUDY: Chest radiograph June 16, 2018. FINDINGS: Lung volumes are normal. Lungs are clear. There is no pneumothorax or pleural effusion. Cardiac size is normal. Mediastinal contours are normal. There is no evidence for pulmonary edema. IMPRESSION: No acute cardiopulmonary findings. ACT 112: Negative or not required by law. Electronically signed by: Nishant Wren M.D. 04/16/2022 5:[address] 04/16/22 16:38 CT OF THE HEAD WITHOUT CONTRAST CLINICAL HISTORY: Left temporal pain, right sided cold/hot sensations COMPARISON STUDY: No previous studies for comparison. CT DOSE: 614.27 mGy.cm TECHNIQUE: Helical axial images of the head were obtained without IV contrast. Automated exposure control was utilized for the study. A dose lowering technique was utilized adhering to the principles of ALARA. FINDINGS: No acute intracranial hemorrhage, midline shift or mass effect is present. There is a 2.2 cm hypodensity within the white matter of the right frontal lobe, involving the medina radiata. An additional 1.1 cm white matter hypodensity adjacent to the temporal horn of the right lateral ventricle is noted. The ventricular system is unremarkable. The basal cisterns are patent. No extra-axial collections are present. There are no findings to suggest acute dural sinus thrombosis or acute territorial infarct. No significant calvarial abnormalities are present. Visualized portions of the sinuses and mastoid air cells are clear. IMPRESSION: A few white matter hypodensities. Although nonspecific, these raise the possibility of a demyelinating process such as multiple sclerosis. An MRI of the brain with and without contrast MS protocol could be obtained for further evaluation. ACT 112: Negative or not required by law. Electronically signed by: Nishant Wren M.D. 04/16/2022 5:32 PM Diagnostic Findings MRI Brain - per STAT rad - Multiple T2/Flair hyperintense foci in bilateral periventricular and juxtacortical white matter wtih ovoid foci demonstrated at callosal marginal junction. Multiple lesions demonstrate postcontrast enhancem ent. Small T2 hyperintensity in the left cerebellar hemisphere and left ventral kanchan. More confluent T2 hyperintense lesion in the right ventral medulla oblongata and ovoid lesion in the spinal cord at C2 level. The findings are most compatible with demyelinating disease such as multiple sclerosis. Enhancing foci suggest active demyelination. ECG Additional Comments: NSR at 72, normal axis and intervals, no acute ischemic changes PG Care Time/CCT Total # of Minutes Spent Total Time Spent with Patient: Total time spent is greater than 50% in coordination of care (as documented) at patient's floor/unit and/or counseling patient: Coding Level of Care Code INT OBSERVATION CARE 50M LVL 2 Diagnoses GERD (gastroesophageal reflux disease) K21.9 Anxiety F41.9 Demyelinating disease G37.9
[2022-04-17] MEDS ORDERED: ONDANSETRON INJ 2 MG/ML 2 ML VIAL IV PRN (01:38)
[2022-04-17] MEDS ORDERED: LORazepam 0.5 MG TAB PO PRN (01:38)
[2022-04-17] MEDS: ACETAMINOPHEN 325 MG TAB PO PRN ×2 (06:05→20:49)
--- NOTE | 2022-04-17 07:27 | Magnetic Resonance Report ---
MR brain MS wo/w con CLINICAL HISTORY: Neurologic symptoms. COMPARISON STUDY: Head CT April 16, 2022. TECHNIQUE: Utilizing a 1.5 Nisha magnet and dedicated coil, multiplanar, multi echo imaging of the br ain was performed pre and postcontrast administration according to the multiple sclerosis protocol. I ntravenous injection of 7 cc of Gadavist was uneventful. FINDINGS: Note is made of numerous supratentorial and infratentorial T2 hyperintense foci. The larges t is a 2.2 cm lesion within the right centrum semiovale ovale on axial T2 sequence image 17 of 24. Ma ny of these lesions demonstrate enhancement. The enhancement measures up to 1.2 cm in extent. A 6 mm lesion within the right anterior aspect of the medulla is present. A T2 hyperintense lesion within th e left aspect of the upper cord at the C2 level extends for 2.5 cm. This lesion enhances. There is no significant mass effect. No midline shift is present. Ventricular system is normal. Basal cisterns a re patent. There are no extra-axial collections. Flow-voids for the major intracranial vessels are pr esent. There is possible increased T2 signal within the intraorbital portion of the left optic nerve shown on coronal FLAIR reformatted image 88 of 429. Evaluation for enhancement is suboptimal on this nondedicated orbit exam. Calvarial signal is within normal limits. IMPRESSION: Numerous T2 hyperintense lesions within the brain and upper cervical cord consistent with demyelination. Many of these plaques enhance consistent with active demyelination. The findings are highly suggestive of multiple sclerosis. Possible left-sided optic neuritis. ACT 112: Negative or not required by law. Electronically signed by: Nishant Wren M.D. 04/17/2022 7:24 AM
--- NOTE | 2022-04-17 08:22 | Hospitalist Progress Note ---
Date of Service April 17, 2022 Assessment & Plan (1) Demyelinating disease: Plan: 36yo female presenting with complaint of paresthesias, LE weakness, difficulty with ambulation, some minor changes in speech. Symptoms have been ongoing and evolving since 04/07/22. Patient had previous episode of unexplained neurological complaints in October 2021. Demyelinating disease -TSH, Lyme, CK wnl. JOSTIN pending -CT head- white matter hypodensities including in frontal lobe suggestive of demyelination -MRI brain- hyperintense foci of brain and cervical spine suggesting demyelinating plaques, suspicious for multiple sclerosis -MRI cervical spine pending -Neurology consulted -Continue solumedrol 1g daily x5 days total. First dose given today. Oral prednisone taper to follow -Check B12, RF, KINGS level. Ordered. -Awaiting MRI spine results before deciding whether lumbar puncture is indicated- coordinating with [facility] neurology -Encourage ambulation/movement, holding off on PT/OT for now -Monitor CBC, BMP while on steroid therapy (2) GERD (gastroesophageal reflux disease): Plan: Chronic. Stable on medications -Continue Famotidine 40mg po q daily for reflux and also ulcer prophylaxis while on steroids (3) Anxiety: Plan: Chronic -Pt does not want to take her Prozac as she has only been on it for a few weeks- discontinued in hospital -Continue Ativan 0.5 mg PRN for anxiety related to psychosocial stressors Plan: F/E/N - Heplock. Electroltyes WNL. Regular diet as tolerated Ppx - Low risk for DVT Code - Full Dispo - Observation to medical Admission and Anticipated Discharge Date Admission Date: April 16, 2022 Supervising Physician Co-Signing Physician Notes Patient seen and examined with PGY-1 Dr. Dhillon. Agree with history, exam findings, assessment and plan of care as outlined. In brief, Candace is a 36 year old female with no significant past medical history, admitted with worsening paresthesias and difficulty with ambulation "feeling like a baby giraffe" and increasing left sided clumsiness. In the ED, found to have demyelinating lesions in the brain and upper cervical spine and left optic neuritis on MRI. Today, she reports some feelings of being overwhelmed with everything. 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 works in the [employer] industry and lives/works in [place]. No vision changes or vision loss. No double vision. No loss or change in color perception. VS and nursing notes reviewed. No afferent pupillary defect. extraoccular eye movements are in tact. No double vision. difficulty with left upper extremity rapid alternating movements, left heel to gar. Gait is unsteady. At times, affect was a bit flat. Labs and imaging reviewed. 1. Demyelinating disease. likely multiple sclerosis. MRI of brain with numerous enhancing T2 hyperintense foci in the brain and upper cervical spine consistent with active demyelination; left optic neuritis. Started 1000mg SoluMedrol daily on 04/17. Plan to taper to oral prednisone. MRI with contrast of the cervical and thoracic spine are pending. Appreciate neurology recommendations. Dispo: pending clinical improvement. Subjective Prior to evaluation, pt observed to have some difficulty with balance and ambulation while being examined by neurologist. Pt states she feels mostly the same, denies any relief or worsening of her symptoms. States she has significant anxiety and stress related to running her company which is contributing to an occipital headache at present. She denies any focal weakness or numbness, no bowel/bladder incontinence, does report some burning along her R side. Denies any current or recent history of ocular symptoms including visual field deficits, color misperception, eye pain. Does notice that moving her eyes around can occasionally exacerbate her headache. Pt was tearful and forlorn when discussing how hard she worked for her company's success and employees' job stability during the pandemic only for her illness to now potentially put that at risk. States Ativan did help her sleep and provided some relief from her anxiety overnight Review of Systems Review of Systems: Per subjective Physical Exam Physical Exam: General: anxious and tearful Skin: warm, dry, intact, no rashes or lesions HEENT: NCAT, moist mucous membranes Heart: +S1/S2, regular, no m/r/g Lungs: equal air entry bilaterally, no rales/rhonchi/wheezes MSK: normal bulk and tone of b/l UE and LE Neuro: +low volume speech with some lag, cranial nerves grossly intact- PERRLA, EOMI, no visual field deficits identified, +bilateral UE strength 5/5, 4/5 strength with flexion and plantarflexion of b/l LE, no sensory deficits b/l though noted subjective burning with palpation of R torso, negative Lhermitte's sign, +patellar hyperreflexia, +difficulty with L hand dysdiadochokinesia testing and heel-gar dysmetria testing. Gait not formally assessed but observed to have gait instability when being examined by neurology Psych: blunted affect for majority of evaluation but later achieved normal range, +mild psychomotor slowing Results & Data Results & Data ([facility]) Vital Signs (Past 12 Hours) Vital Signs Temp Pulse Pulse Resp BP BP Pulse Ox 04/17/22 07:21 37.1 C 60 18 115/73 97 04/17/22 01:41 37.1 C 61 16 121/72 99 04/17/22 00:10 76 20 126/72 99 04/16/22 22:30 68 15 122/71 100 04/16/22 21:30 83 16 137/68 98 04/16/22 21:04 76 17 126/70 97 Resident Activity Tracking Resident Involvement: Resident Care Provided Care Provided: Adult Hospital Medicine
[2022-04-17] MEDS: FLUoxetine HCL 10 MG CAP PO SCH ×2 (08:50→09:10)
[2022-04-17] MEDS: LORATADINE 10 MG TAB PO SCH (08:51)
[2022-04-17] MEDS: methylPREDNISolone 1,000 MG in DEXTROSE 5% 250 ML IV SCH (09:47)
--- NOTE | 2022-04-17 12:29 | Communication Note ---
Date of Service: April 17, 2022 Candace Ramon is 36 years old is right-handed suffers from anxiety gastroesophageal reflux panic attacks and in the past some right upper quadrant abdominal pain. In October of this year she developed paresthesias of the left leg which descended to above her waist and was accompanied by some clumsiness of the leg but no particular pain She was evaluated by an MRI of the lumbar spine showing some discogenic disease at L4-5 and was treated with some steroids and the symptoms resolved He denies any prior neurologic events but does describe some episodic feelings of gait imbalance etc. but no real paresthesias no visual loss no diplopia no Lhermitte's phenomena no bowel or bladder dysfunction is described She developed some left occipital pain then right sided paresthesias descending over arm into her leg and some clumsiness of gait for which she was evaluated in our emergency room about a week ago was given cyclobenzaprine which she could not tolerate and was given a short course of prednisone orally which did seem to help her symptoms but then she stopped the prednisone and obtain an appointment in our office with Danay Gonzalez PA-C just this past which point she was beginning to talk about some clumsiness in both legs and some numbness in her feet. She also continued to have the occipital pain MRIs of the brain and cervical spine were to be done along with an EMG as he was concerned about demyelinating disease Since that visit she has declined has more problems with gait balance now feels that both legs are numb thinks her left leg is becoming increasingly numb her left hand is getting more useless She is also becoming more labile and concerned about her diagnosis She is seen in the emergency room where she presented last night because of increasing complaints, and MRI of the brain showed multiple lesions consistent with demyelinating disease some which enhanced an ovoid lesion in the high cervical cord I was contacted by phone and suggested that she be admitted that a cervical and thoracic MRI with and without contrast to be done and that we might consider lumbar puncture Thus far the imaging studies have not been done Home medications include vitamin D because of a recent vitamin D deficiency, famotidine, fluoxetine loratadine, lorazepam and norethindrome She has allergies to sulfa adhesive tape Family history social history are as outlined on the admitting history and physical Review of systems besides the complaints related to the history of present illness is essentially unremarkable and reflects no recent tick bite no complaints of joint pain photosensitivity skin rash, visual loss, pleurisy, anemia or dysthyroidism Her mother interestingly enough has some form of thyroid dysfunction but otherwise there is no family history for immune disorders Exam reveals blood pressure 115/73 pulse 60 respirations are 18 she is afebrile and has an O2 saturation of 97% on room air She is awake alert oriented somewhat labile and tearful but after a few minutes becomes quite reasonable and cooperative. Cranial nerves are intact with no abnormal eye movements facial motility issues loss of facial sensation with clear speech. Gait is abnormal with a mild dystaxia not requiring an assistive device but of concern for safety. There is no real drift or pronation sign but facility seems a little reduced in the left arm and left leg. Reflexes are quite brisk bilaterally in the lower extremities worse on the left where there is clonus and left toe signs extensor right toe sign is equivocal. Sensory examination reveals some reduced qualitative appreciation of vibration light touch and temperature of the entire right side and is normal on the left The most likely diagnosis here is multiple sclerosis. I doubt that this is neuromyelitis optica or any other multiple sclerosis variant and do not think this is neurosarcoidosis but all of these into the differential Her current deficits are increasing rapidly and there are areas of enhancement in the brain. I suspect that much of what we are seeing is due to spinal cord involvement but we do not have imaging to confirm this I would recommend the followin) 1 g of Solu-Medrol daily intravenously for 4 days 2) this will be followed by an oral tapering course of prednisone dose to be determined depending on how she does with the intravenous 3) cover for steroid-induced agitation and insomnia with benzodiazepines as needed 4) await results of further imaging before potential lumbar puncture 5) additional laboratory studies to search for other autoimmune phenomenon to include B12 level, TSH, antinuclear antibody, rheumatoid factor and check for angiotensin-converting enzyme level Danay Gonzalez PA-C and myself will be making rounds again tomorrow but prior to that we will attempt to have the imaging studies sent to our multiple sclerosis specialty group in [place] for review and based on that we may or may not suggest a lumbar puncture. At times imaging studies are so characteristic that CSF analysis as little value She may need an outpatient neuromyelitis optica antibody but MY suspicion that this is Devic's disease and not multiple sclerosis is extremely low Kwesi Montes De Oca MD The above note was generated utilizing voice recognition technology and may have spelling errors punctuation errors pronoun usage errors and syntax errors
--- NOTE | 2022-04-17 14:59 | Electrocardiogram Report ---
Test Reason : Blood Pressure : / mmHG Vent. Rate : 072 BPM Atrial Rate : 072 BPM P-R Int : 124 ms QRS Dur : 076 ms QT Int : 388 ms P-R-T Axes : 065 051 050 degrees QTc Int : 424 ms Normal sinus rhythm with sinus arrhythmia Possible Left atrial enlargement Poor R wave progression, consider anterior [place] vs. lead placement vs. LVH Abnormal ECG When compared with ECG of 16-JUN-2018 13:25, No significant change was found Confirmed by Inder Clark ([id number]) on 04/17/2022 2:58:50 PM Referred By: Josiane Guevara Confirmed By:Inder Clark
--- NOTE | 2022-04-17 19:45 | Communication Note ---
Date of Service: April 17, 2022 The mri scans of the cervical and thoracic spines were apparently never ordered by either the er staff or the admitting service I discovered this when I tried to review the studies tonight I have just ordered them and hopefully they kim be available for review toorrow afternoon so that we can transfer the images to the [facility] MS team and arrive at a decision regarding tne need for an LP Kwesi Montes De Oca MD
[2022-04-17] MEDS: FAMOTIDINE 40 MG TABLET PO SCH (20:50)
[2022-04-18] MEDS: LORazepam 0.5 MG TAB PO PRN (01:26)
[2022-04-18 07:09] LABS: Hematocrit (blood only) 36.6 % (37-47); Hemoglobin 12.4 g/dL (12.0-16.0); Mean Corpuscular Hemoglobin 31.1 pg (25-34); Mean Corpuscular Hgb Conc 33.9 g/dL (32-36); Mean Corpuscular Volume 91.7 fL (80-100); Mean Platelet Volume 11.7 fL (7.4-10.4); Platelet Count 245 K/uL (130-400); RDW Coefficient of Variation 12.5 % (11.5-14.5); RDW Standard Deviation 42.4 fL (36.4-46.3); Red Blood Count 3.99 M/uL (4.2-5.4); White Blood Count 10.81 K/uL (4.8-10.8)
[2022-04-18 07:32] LABS: BUN Creatinine Ratio 13.1 (10-20); Calcium 9.1 mg/dl (8.5-10.1); Est GFR (African American) 134.2 ml/min; Est GFR (Non-African American) 115.8 ml/min; Potassium 3.9 mmol/L (3.5-5.1)
[2022-04-18] MEDS: LORATADINE 10 MG TAB PO SCH (09:19)
[2022-04-18] MEDS: methylPREDNISolone 1,000 MG in DEXTROSE 5% 250 ML IV SCH (09:19)
[2022-04-18] MEDS: ERGOCALCIFEROL 50,000 UNITS 1250 MCG CAP PO SCH ×2 (10:23→10:59)
[2022-04-18] MEDS ORDERED: GADOBUTROL 65ML VIAL IV ONE (13:02)
--- NOTE | 2022-04-18 13:21 | Magnetic Resonance Report ---
MRI OF THE CERVICAL SPINE WITH AND WITHOUT CONTRAST CLINICAL HISTORY: Possible multiple sclerosis. COMPARISON: None. TECHNIQUE: Utilizing a 1.5 Nisha magnet and dedicated coil, multiplanar, multiecho imaging of the ce rvical spine was performed before and after intravenous administration of 7 of Gadavist. FINDINGS: There is slight reversal of the normal cervical lordosis. Vertebral body heights are maintained. Ther e is no suspicious marrow replacement. No marrow edema. Note is made of a focus of increased T2 signa l within left aspect of the cord which extends from the upper C2 level to the C2-C3 level. This exten ds for 2.1 cm in craniocaudal dimension. This contains a 1 x 0.5 cm enhancing focus. No additional fo ci of cervical cord enhancement are present. No cord expansion is present. A possible additional smal ler focus of signal abnormality within the right aspect of the cord at the C4-C5 level is probably ar tifactual. Paravertebral soft tissues are unremarkable. There is no intracanalicular mass or fluid co llection. C2-C3: The central canal and neural foramen are patent. C3-C4: The central canal and neural foramen are patent. C4-C5: The central canal and neural foramen are patent C5-C6: There is disc bulge with small superimposed central disc protrusion. This effaces the ventral thecal sac. There is mild central canal narrowing. There is mild bilateral neural foraminal stenosis . C6-C7: Central canal and neural foramen are patent. C7-T1: Central canal and neural foramen are patent. IMPRESSION: 1. Enhancing T2 hyperintense focus within the left aspect of the cord at the C2-C3 level. Given the f indings on brain MRI of April 16, 2022, this favors a focus of active demyelination. The findings are h ighly suggestive of a demyelinating disease and favor multiple sclerosis. 2. No additional foci of cord signal abnormality. 3. Mild degenerative changes at C5-C6. ACT 112: Negative or not required by law. Electronically signed by: Nishant Wren M.D. 04/18/2022 1:20 PM
--- NOTE | 2022-04-18 13:28 | Magnetic Resonance Report ---
MRI OF THE THORACIC SPINE WITH AND WITHOUT CONTRAST CLINICAL HISTORY: multiple sclerosis suspect COMPARISON: Scoliosis radiograph July 09, 2021. TECHNIQUE: Utilizing a 1.5 Nisha magnet and dedicated coil, multiplanar, multiecho imaging of the th oracic spine was performed before and after the intravenous administration of 7 cc. FINDINGS: Thoracic spine vertebral body heights are maintained. There is no marrow edema or marrow pl acement. Disc spaces are preserved. There is no intracanalicular mass or fluid clicking. Note is made of a central focus of increased T2 signal within the thoracic cord which extends from the upper T5 t hrough T6 levels. There may be slight cord volume loss. There is no lesion enhancement. No abnormal e nhancement within the thoracic cord is present. No additional foci of cord signal abnormality within the thoracic cord are present. Central canal and neural foramen are patent. No disc herniations are p resent. Paravertebral soft tissues are unremarkable. IMPRESSION: 1. Focus of increased T2 signal extending from the upper T5 through T6 level. No associated enhanceme nt. This favors a demyelinating plaque. No evidence for active demyelination within the thoracic cord . No additional foci of thoracic cord signal abnormality. 2. Patent central canal and neural foramen within the thoracic spine. ACT 112: Negative or not required by law. Electronically signed by: Nishant Wren M.D. 04/18/2022 1:27 PM
[2022-04-18] MEDS: ACETAMINOPHEN 325 MG TAB PO PRN (13:43)
--- NOTE | 2022-04-18 16:28 | Communication Note ---
Date of Service: April 18, 2022 Candace is doing better today after 2 doses of IV Solu-Medrol. She is still hesitant while walking but feels more confident and has a mild dystaxic gait wit h some spastic qualities to it qualitatively the same as yesterday but quantitatively improved Her mood is good she is less tearful there is no significant upper extremity complaints other than some paresthesias in the right arm and the left occipital neuralgic like pain seems to have gone Imaging of the spine shows a lesion in the high cervical cord on the left which would explain the pain and certainly the myelopathic findings as it is enhancing and certainly would be consistent with a recently active plaque The thoracic cord shows a single lesion at T5-6 but not elongated extensively in my opinion consistent with the event that she had back in October when the left leg went numb up to the level of her waist and is currently inactive in terms of not taking up time We are in the process of sending the images up to our multiple sclerosis team and will seek their advice about whether they think a lumbar puncture is needed but I think from my point of view this is typical MS and I do not think we need to get any other CSF studies to confirm the diagnosis. He may do a neuromyelitis optica antibody and a serum and I am waiting for some of the results of the neurologic studies if there are other autoimmune issues to address Plan is to keep her for another 2 days at least of IV Solu-Medrol perhaps to the fifth day pending how she is doing and then discharge her on oral tapering course arrange for follow-up in our office as needed and more importantly with the multiple sclerosis team in [place] or at [facility] Will continue to see her on a daily basis Kwesi Montes De Oca MD
--- NOTE | 2022-04-18 17:58 | Hospitalist Progress Note ---
Date of Service April 18, 2022 Assessment & Plan (1) Demyelinating disease: Plan: 36yo female presenting with complaint of paresthesias, LE weakness, difficulty with ambulation, some minor changes in speech. Symptoms have been ongoing and evolving since 04/07/22. Patient had previous episode of unexplained neurological complaints in October 2021. Multiple sclerosis -TSH, Lyme, CK wnl. JOSTIN pending -CT head- white matter hypodensities including in frontal lobe suggestive of demyelination -MRI brain- hyperintense foci of brain and cervical spine suggesting demyelinating plaques, suspicious for multiple sclerosis -MRI cervical spine: Demyelinating lesions at C2/C3 -MRI thoracic spine: Demyelinating lesions at T5/T6 -Neurology consulted -Continue Solumedrol 1g daily x5 days total. First dose given today. Oral prednisone taper to follow -Awaiting [facility] neurology assessment on whether lumbar puncture is indicated. -Encourage ambulation/movement, holding off on PT/OT for now -Monitor CBC, BMP while on steroid therapy GERD * Home famotidine Anxiety * Continue home Ativan 0.5 mg as needed. F/E/N - Heplock. Electroltyes WNL. Regular diet as tolerated Ppx - Low risk for DVT Code - Full Dispo - Observation to medical (2) GERD (gastroesophageal reflux disease): (3) Anxiety: Admission and Anticipated Discharge Date Admission Date: April 16, 2022 Supervising Physician Co-Signing Physician Notes I personally examined the patient and verified all johnson points of history and exam, discussed case, and agree with decision making with Dr Horn able to move better today. notes that one of her visitors yesterday isabela kareem (+) for covid today. pt vaccinated vitals noted nad heent nc at mmm breathing unlabored no accessory muscles good effort skin no rashes no pallor or icterus demyelination -most c/w new MS. fortunately does seem to be showing improvement w steroids possible covid exposure - pt vaccinated, guest was masked. overall risk/benefit favors watchful waiting; continue steroids given that she is showing benefit. otherwise as above Subjective Patient is sitting up in bed this morning with at bedside. She reports subjective improvement versus yesterday. She still reports focal weakness on her left side, particularly in the lower extremity. She denies numbness and tingling paresthesias she experienced prior to admission. Denies headache, vision changes, central weakness. Review of Systems Review of Systems: All systems reviewed & are unremarkable except as noted in HPI & below Physical Exam Physical Exam: General: Patient is AAO x3 and in no acute distress. HEENT: Non-erythematous oropharynx; no lymphadenopathy; normal dentition. CV: Regular rate and rhythm. Normal S1 and S2. No murmurs gallops or rubs. No pedal edema. Pulmonary: Lungs are clear to auscultation bilaterally. No crackles, rhonchi, or wheezes. Abdomen: Soft, nondistended abdomen. No bruits heard on auscultation. No tenderness to deep palpation. No guarding or rebound. MSK: 3/5 strength at left hip, left knee, and left ankle joints. 5/5 strength in right lower extremity at the hip, and knee. Neuro: No focal findings in CN IIXII. Hyperreflexic at biceps, triceps, and patellar joints bilaterally. Focal left-sided dysmetria on finger-nose test. Unsteady, wide-based gait. Focal hypersensitivity to temperature, general sensation in the right lower extremity, distal >proximal. Psych: Alert and oriented x3. Congruent mood and affect. Results & Data Results & Data ([facility]) Vital Signs (Past 12 Hours) Vital Signs Temp Pulse Resp BP Pulse Ox 04/18/22 14:55 36.9 C 78 16 131/77 98 04/18/22 07:45 37.1 C 61 16 106/54 L 97 Resident Activity Tracking Resident Involvement: Resident Care Provided Care Provided: Adult Hospital Medicine
--- NOTE | 2022-04-18 18:06 | Billing Data ---
Date of Service April 18, 2022 Coding Level of Care Code 76478 Subseq Hosp Care Lvl 2
[2022-04-18] MEDS: FAMOTIDINE 40 MG TABLET PO SCH (20:44)
[2022-04-18] MEDS ORDERED: POLYETHYLENE (MIRALAX) 17 GM PACK PO PRN (20:51)
[2022-04-18] MEDS ORDERED: POLYETHYLENE (MIRALAX) 17 GM PACK PO ONE (20:52)
[2022-04-18] MEDS: DOCUSATE SODIUM 100 MG CAP PO SCH (21:53)
[2022-04-18] MEDS: ADVANCED PROBIOTIC 1250 MG CAPSULE PO SCH (21:53)
[2022-04-19] MEDS: LORazepam 0.5 MG TAB PO PRN (02:02)
--- NOTE | 2022-04-19 07:26 | Hospitalist Progress Note ---
Date of Service April 19, 2022 Assessment & Plan (1) Demyelinating disease: Plan: 36yo female presenting with complaint of paresthesias, LE weakness, difficulty with ambulation, some minor changes in speech. Symptoms have been ongoing and evolving since 04/07/22. Patient had previous episode of unexplained neurological complaints in October 2021. Multiple sclerosis -TSH, Lyme, CK wnl. JOSTIN pending -CT head- white matter hypodensities including in frontal lobe suggestive of demyelination -MRI brain- hyperintense foci of brain and cervical spine suggesting demyelinating plaques, suspicious for multiple sclerosis -MRI cervical spine: Demyelinating lesions at C2/C3 -MRI thoracic spine: Demyelinating lesions at T5/T6 -Neurology consulted * Continue IV Solumedrol 1g daily x5 days total (day 3/5). Oral prednisone taper to follow * Per [facility] neurology, no need for lumbar puncture. * Encourage ambulation/movement, no PT/OT for now GERD * Home famotidine Anxiety * Continue home Ativan 0.5 mg as needed. F/E/N - Heplock. Electroltyes WNL. Regular diet as tolerated Ppx - Low risk for DVT Code - Full Dispo - Observation to medical (2) GERD (gastroesophageal reflux disease): (3) Anxiety: Admission and Anticipated Discharge Date Admission Date: April 16, 2022 Supervising Physician Co-Signing Physician Notes I personally examined the patient and verified all johnson points of history and exam, discussed case, and agree with decision making with Dr Horn moving better still. walked w cane but also w steady gait. feels like she's able to move a lot closer to normally now. discussed stress management/work life balance vitals noted nad heent nc at mmm breathing unlabored no accessory muscles good effort skin no rashes no pallor or icterus demyelination -most c/w new MS. fortunately is showing improvement w steroids - continue D deficiency, B12 insufficiency - replace. given low on both - for completeness also rec'd iron studies - but not sure what effect large doses of steroids might have on ferritin - so would do so as outpt possible covid exposure - pt vaccinated, guest was masked. overall risk/benefit favors watchful waiting; continue steroids given that she is showing benefit. otherwise as above Subjective Patient is standing with the assistance of a cane in the room. She reports subjective improvement versus yesterday. She has no acute concerns or complaints. Review of Systems Review of Systems: All systems reviewed & are unremarkable except as noted in HPI & below Physical Exam Physical Exam: General: Patient is standing with the assistance of a cane and appears in no acute distress. HEENT: Non-erythematous oropharynx; no lymphadenopathy; normal dentition. CV: Regular rate and rhythm. Normal S1 and S2. No murmurs gallops or rubs. No pedal edema. Pulmonary: Lungs are clear to auscultation bilaterally. No crackles, rhonchi, or wheezes. Abdomen: Soft, nondistended abdomen. No bruits heard on auscultation. No tenderness to deep palpation. No guarding or rebound. MSK: 3/5 strength at left hip, left knee, and left ankle joints. 5/5 strength in right lower extremity at the hip, and knee. Neuro: No focal findings in CN IIXII. Hyperreflexic at biceps, triceps, and patellar joints bilaterally. Focal left-sided dysmetria on finger-nose test. Unsteady, wide-based gait. Focal hypersensitivity to temperature, general sensation in the right lower extremity, distal >proximal. Psych: Alert and oriented x3. Congruent mood and affect. Results & Data Results & Data ([facility]) Vital Signs (Past 12 Hours) Vital Signs Temp Pulse Resp BP Pulse Ox 04/18/22 22:59 36.6 C 67 16 129/84 100 Resident Activity Tracking Resident Involvement: Resident Care Provided Care Provided: Adult [facility] Medicine
[2022-04-19] MEDS ORDERED: methylPREDNISolone 1,000 MG in SODIUM CHLORIDE 0.9% 250 ML IV SCH (09:00)
[2022-04-19] MEDS: LORATADINE 10 MG TAB PO SCH (09:35)
[2022-04-19] MEDS: DOCUSATE SODIUM 100 MG CAP PO SCH ×2 (09:35→21:54)
[2022-04-19] MEDS: CHOLECALCIFEROL 1,000 UNITS 25 MCG TAB PO SCH (09:35)
[2022-04-19] MEDS: ERGOCALCIFEROL 50,000 UNITS 1250 MCG CAP PO SCH (09:35)
[2022-04-19] MEDS: CYANOCOBALAMIN (B-12) 500 MCG TABLET PO SCH (10:21)
[2022-04-19] MEDS: ADVANCED PROBIOTIC 1250 MG CAPSULE PO SCH (10:21)
--- NOTE | 2022-04-19 12:14 | Neurology Progress Note ---
Date of Service April 19, 2022 Assessment & Plan (1) Multiple sclerosis: Plan: 1. MRI brain/c spine, t spine- significant burden of plaques 2. continue Methylprednisone 1 g daily x 5 days. discharge on taper prednisone 80 mg x 3, 60 mg x 3, 40 mg x 3, 30 mg x 3, 20 mg x 3, 10 mg x 3 then stop 3. PT/OT for discharge needs 4. will see in our office once plan is in place - she is to call our office with any new flares. 5. Dr Herrera our MS specialist feels the imaging is sufficient for diagnosis and would not require an LP 6. arrangement being made for her to see our MS specialist next month. 7. if she chooses to transfer care to [place] will need imaging down loaded on disc 8. will need out patient neuroophthalmology exam for possible optic neuritis ok to discharge when medically stable and 5 doses of methylprednisone is given. Admission and Anticipated Discharge Date Admission Date: April 16, 2022 Supervising Physician Co-Signing Physician Notes I have seen and discussed above patient with Dr Kwesi Montes De Oca, neurology I have examined Candace today and reviewed the above note discussed her case with Danay Gonzalez PA-C. Her MRI of the brain has apparently suggested the possibility of an optic neuritis but this is clinically silent currently but no visual loss no abdominal pain and no history to support but could indicate an old area of optic nerve involvement that was subclinical. The issue is academic as she is being appropriately treated for an acute multiple sclerosis flare designed Inflammation in the Upper Cervical Cord Area Where I Think Most of Her Symptoms Are Produced. Today Her Gait Is Better but Still Unsteady She Uses a Cane She Is Very Hesitant I Think She Is Going to Need the Fifth Dose of Solu-Medrol and an Oral Tapering Course Arrangements are being made for her to be seen by our multiple sclerosis group Their review of the case indicates that there is no need for CSF analysis and I am in total agreement as the findings are rather conclusive that this is multiple sclerosis Kwesi Montes De Oca MD Subjective She developed symptoms on 11/26/21, neuropathy "pins and needles" involving the side of her left foot which traveled up her leg then to involve majority of left lower extremity and side. She had an MRI of the Lumbar Spine performed at that time which revealed moderate disc space narrowing with a 4mm broad-based disc protrusion/herniation at L5-S1 without nerve root impingement. Her symptoms lasted approximately 2-3 weeks. She was prescribed Medrol dose pack x 2 with resolution. She then had symptoms began on April 07. She first had a lancinating pain behind the left hear, temporal and occipital region. She was seen in the ER on 04/09/22 with these complaints and was diagnosed with occipital neuralgia. She was prescribed Flexeril and Prednisone. She felt quite poorly after taking 1/2 of a Flexeril tab so did not continue this medication. She did finish her Prednisone (60mg x 4 days). Her symptoms persisted. She was seen by [facility] on 04/14/22 and was ordered an MRI of the brain as well as EMG (to be completed in 2 weeks and 3 weeks, respectively). Over the last two days her symptoms have been persistent. She reports neuropathy of her RUE, RLE and right abdomen as well as poor balance,leg weakness and difficulty with ambulation. She feels that her legs are heavy and slow moving "like walking through concrete". Her sensation in her RUE is diminished but touch to the right side of her abdomen and RLE feels burning and uncomfortable. She had some alteration in temperature sensation where hot felt cold and cold felt hot. This morning she was having difficulty getting off the floor. she had an MRI brain, C spine and t spine which confirmed the diagnosis of MS. She has not had an LP for confirmation but she has significant plaques burden. She is doing better today after 3 IV steroids infusions. she is able to get out of bed unassisted. denies CP, SOB, abdominal pain, vision changes. Review of Systems Review of Systems: All systems reviewed & are unremarkable except as noted in HPI & below Physical Exam Physical Exam: Physical Exam: Constitutional: appearance nourished, healthy and normal Ears, Nose, Mouth and Throat: mucous membranes moist, no injection and skin normal, eyes normal Cardiovascular: normal S-1 and S-2 and regular rate and rhythm Respiratory: clear to auscultation (CTA) Musculoskeletal: no peripheral edema and good distal pulses, warm Skin: no stigmata of neurocutaneous disease noted and normal and intact Eyes: extraocular muscles intact (EOMI) and pupils equal, round and reactive to light (PERRL) NEUROLOGIC EXAMINATION: Mental status: Alert and interactive Oriented to full date and location Oriented to person Speech fluent with no evidence of aphasia Cranial Nerves smile eye brow raise symmetric Reflexes: Deep tendon reflexes were brisk bilaterally L>R, ankle jerks brisk Sensory: no sensory deficits Coordination: finger to nose Gait/Stance: Posture normal. Gait stands without assistance, move slowly and deliberately, knee bend but very stiff movements, metzger flex bilaterally decreased L>R Motor: Negative for pronator drift of out stretched arms with eyes closed. Strength: hand packing machine tender bilaterally 5/5, triceps 5/5, biceps right 5/5 left 4+/5, deltoids right 5/5 left 4+/5 Results & Data ([facility]) Vital Signs (Past 12 Hours) Vital Signs Temp Pulse Resp BP Pulse Ox 04/19/22 08:36 36.9 C 51 L 16 133/82 98 Diagnostic Findings MRI brain-Numerous T2 hyperintense lesions within the brain and upper cervical cord consistent with demyelination. Many of these plaques enhance consistent with active demyelination. The findings are highly suggestive of multiple sclerosis. Possible left-sided optic neuritis. MRI c spine-Enhancing T2 hyperintense focus within the left aspect of the cord at the C2-C3 level. Given the findings on brain MRI of April 16, 2022, this favors a focus of active demyelination. The findings are highly suggestive of a demyelinating disease and favor multiple sclerosis. No additional foci of cord signal abnormality. Mild degenerative changes at C5-C6. MRI T spine- Focus of increased T2 signal extending from the upper T5 through T6 level. No associated enhancement. This favors a demyelinating plaque. No evidence for active demyelination within the thoracic cord. No additional foci of thoracic cord signal abnormality. Patent central canal and neural foramen within the thoracic spine.
[2022-04-19 14:17] LABS: Anti Nuclear Antibody Screen NEGATIVE (NEGATIVE)
--- NOTE | 2022-04-19 16:08 | Billing Data ---
Date of Service April 19, 2022 Coding Level of Care Code 96084 Subseq Hosp Care Lvl 2
[2022-04-19 18:26] LABS: Angiotensin Converting Enzyme 22 U/L (9-67); Rheumatoid Factor <14 IU/mL (<14)
[2022-04-19] MEDS: FAMOTIDINE 40 MG TABLET PO SCH (21:54)
[2022-04-20] MEDS: LORazepam 0.5 MG TAB PO PRN (00:29)
[2022-04-20] MEDS ORDERED: LORazepam 0.5 MG TAB PO ONE (01:51)
[2022-04-20] MEDS: methylPREDNISolone 1,000 MG in DEXTROSE 5% 250 ML IV SCH (09:50)
[2022-04-20] MEDS: LORATADINE 10 MG TAB PO SCH (09:50)
[2022-04-20] MEDS: DOCUSATE SODIUM 100 MG CAP PO SCH ×2 (09:50→20:40)
[2022-04-20] MEDS: CYANOCOBALAMIN (B-12) 500 MCG TABLET PO SCH (09:50)
[2022-04-20] MEDS: CHOLECALCIFEROL 1,000 UNITS 25 MCG TAB PO SCH (09:51)
[2022-04-20] MEDS: ADVANCED PROBIOTIC 1250 MG CAPSULE PO SCH (09:51)
[2022-04-20] MEDS: ACETAMINOPHEN 325 MG TAB PO PRN ×2 (10:07→21:45)
--- NOTE | 2022-04-20 15:29 | Communication Note ---
Date of Service: April 20, 2022 I attempted to see Candace today but she was out with friends on the hospital grounds getting exercise and seems to be doing reasonably well although florentin ng to friend who is in the room, her gait is still unsteady and she requires a cane and is very slow She is due for 1 more day of Solu-Medrol and then a follow-up oral prednisone taper as outlined in her note We will see her tomorrow and try to finalize discharge planning It is possible she may need some outpatient physical therapy and we will discuss this with her tomorrow Our multiple sclerosis team is trying to arrange for a visit next month to establish a plan for long-term management and to determine other laboratory studies that might need to be done Right now CSF analysis is not felt to be needed Kwesi Montes De Oca MD
--- NOTE | 2022-04-20 16:26 | Billing Data ---
Date of Service April 20, 2022 Coding Level of Care Code 07107 Subseq Hosp Care Lvl 2
--- NOTE | 2022-04-20 17:41 | Hospitalist Progress Note ---
Date of Service April 20, 2022 Assessment & Plan (1) Demyelinating disease: Plan: 36yo female presenting with complaint of paresthesias, LE weakness, difficulty with ambulation, some minor changes in speech. Symptoms have been ongoing and evolving since 04/07/22. Patient had previous episode of unexplained neurological complaints in October 2021. Multiple sclerosis -TSH, Lyme, CK wnl. JOSTIN pending -CT head- white matter hypodensities including in frontal lobe suggestive of demyelination -MRI brain- hyperintense foci of brain and cervical spine suggesting demyelinating plaques, suspicious for multiple sclerosis -MRI cervical spine: Demyelinating lesions at C2/C3 -MRI thoracic spine: Demyelinating lesions at T5/T6 -Neurology consulted * Continue IV Solumedrol 1g daily x5 days total (day 4/5). Oral prednisone taper to follow * Per [facility] neurology, no need for lumbar puncture. * Encourage ambulation/movement, no PT/OT for now * Anticipate discharge tomorrow. GERD * Home famotidine Anxiety * Continue home Ativan 0.5 mg as needed. F/E/N - Heplock. Electrolytes WNL. Regular diet as tolerated Ppx - Low risk for DVT Code - Full Dispo - Observation to medical (2) GERD (gastroesophageal reflux disease): (3) Anxiety: Admission and Anticipated Discharge Date Admission Date: April 20, 2022 Supervising Physician Co-Signing Physician Notes I personally examined the patient and verified all johnson points of history and exam, discussed case, and agree with decision making with Dr Horn feeling better overall. discussed work/life balance, stress management etc vitals noted nad heent nc at mmm breathing unlabored no accessory muscles good effort skin no rashes no pallor or icterus demyelination -most c/w new MS. fortunately is showing improvement w steroids - continue 1g daily x5 days per neuro D deficiency, B12 insufficiency - replace. given low on both - for completeness also rec'd iron studies - but not sure what effect large doses of steroids might have on ferritin - so would do so as outpt otherwise as above Subjective Pt. awake in bed about to eat breakfast. Pt still requires a cane to ambulate. Patient expresses that she continues to feel better. She has no acute concerns or complaints at this time. Review of Systems Review of Systems: All systems reviewed & are unremarkable except as noted in HPI & below Physical Exam Physical Exam: General: Patient is standing with the assistance of a cane and appears in no acute distress. HEENT: Non-erythematous oropharynx; no lymphadenopathy; normal dentition. CV: Regular rate and rhythm. Normal S1 and S2. No murmurs gallops or rubs. No pedal edema. Pulmonary: Lungs are clear to auscultation bilaterally. No crackles, rhonchi, or wheezes. Abdomen: Soft, nondistended abdomen. No bruits heard on auscultation. No tenderness to deep palpation. No guarding or rebound. MSK: 3/5 strength at left hip, left knee, and left ankle joints. 5/5 strength in right lower extremity at the hip, and knee. Neuro: No focal findings in CN IIXII. Hyperreflexic at biceps, triceps, and patellar joints bilaterally. Focal left-sided dysmetria on finger-nose test. Unsteady, wide-based gait. Focal hypersensitivity to temperature, general sensation in the right lower extremity, distal >proximal. Psych: Alert and oriented x3. Congruent mood and affect. Results & Data Results & Data ([facility]) Vital Signs (Past 12 Hours) Vital Signs Temp Pulse Resp BP Pulse Ox 04/20/22 16:03 36.7 C 73 18 133/86 97 04/20/22 07:32 37.1 C 46 L 18 137/78 97 Resident Activity Tracking Resident Involvement: Resident Care Provided Care Provided: Adult Hospital Medicine
[2022-04-20] MEDS: FAMOTIDINE 40 MG TABLET PO SCH (20:40)
[2022-04-21] MEDS: ADVANCED PROBIOTIC 1250 MG CAPSULE PO SCH (08:00)
[2022-04-21] MEDS: CYANOCOBALAMIN (B-12) 500 MCG TABLET PO SCH (08:00)
[2022-04-21] MEDS: CHOLECALCIFEROL 1,000 UNITS 25 MCG TAB PO SCH (08:00)
[2022-04-21] MEDS: ACETAMINOPHEN 325 MG TAB PO PRN (08:00)
[2022-04-21] MEDS: LORATADINE 10 MG TAB PO SCH (08:00)
[2022-04-21] MEDS: DOCUSATE SODIUM 100 MG CAP PO SCH (08:01)
[2022-04-21] MEDS: methylPREDNISolone 1,000 MG in DEXTROSE 5% 250 ML IV SCH (10:07)
--- NOTE | 2022-04-21 11:19 | Discharge Summary ---
Date of Service April 21, 2022 Admission HPI Per Admitting Provider Candace Ramon is a 36yo female with history of anxiety, GERD presenting with complaint of paresthesias, difficulty ambulating. Found to have demyelination on brain MRI concerning for MS. Patient first developed symptoms on 11/26/21. She had neuropathy "pins and needles" involving the side of her left foot which traveled up her leg then to involve majority of left lower extremity and side. She had an MRI of the Lumbar Spine performed at that time which revealed moderate disc space narrowing with a 4mm broad-based disc protrusion/herniation at L5-S1 without nerve root impingement. Her symptoms lasted approximately 2-3 weeks. She was prescribed Medrol dose pack x 2 with resolution. Her current symptoms began on April 07. She first had a lancinating pain behind the left hear, temporal and occipital region. She was seen in the ER on 04/09/22 with these complaints and was diagnosed with occipital neuralgia. She was prescribed Flexeril and Prednisone. She felt quite poorly after taking 1/2 of a Flexeril tab so did not continue this medication. She did finish her Prednisone (60mg x 4 days). Her symptoms persisted. She was seen by [facility] on 04/14/22 and was ordered an MRI of the brain as well as EMG (to be completed in 2 weeks and 3 weeks, respectively). Over the last two days her symptoms have been persistent. She reports neuropathy of her RUE, RLE and right abdomen as we ll as poor balance,leg weakness and difficulty with ambulation. She feels that her legs are heavy and slow moving "like walking through concrete". Her sensation in her RUE is diminished but touch to the right side of her abdomen and RLE feels burning and uncomfortable. She had some alteration in temperature sensation where hot felt cold and cold felt hot. This morning she was having difficulty getting off the floor. She called her PCP and was instructed to come to the ER. She denies fever, chills, neck pain or trauma, chest pain, SOB, cough, abdominal pain, nausea, vomiting, diarrhea or constipation. She has had poor appetite this week. She denies visual disturbance, difficulty swallowing, urinary or fecal retention or loss. She does feel that she is speaking more slowly and she mixed up words at work several times this week. No additional complaints. No recent illness. No medication changes. No recreational substance use. She did receive her Covid-19 vaccination with her booster in August 2021. ER Course: Tylenol, Toradol, Ativan, NSS x 1L Admission Exam Per Admitting Provider General: patient resting comfortably, NAD, non-toxic in appearance, AA&O x 4, anxious and tearful, at bedside Skin: warm, dry, intact, no rashes or lesions HEENT: NC/AT, PERRL, EOMI, anicteric sclera, conjunctiva without injection, external ear normal to inspection and nontender, nares patent, moist mucus membranes, dentition intact, no oropharyngeal lesions, neck supple, trachea midline, no LAD, no thyromegaly, no JVD Heart: +S1/S2, regular, no m/r/g Lungs: equal air entry bilaterally, no rales/rhonchi/wheezes Abd: +BS, soft, NT/ND, no masses/organomegaly/ascites Ext: warm, 2+ pulses in UE/LE bilaterally, no clubbing/cyanosis or edema Neuro: CN grossly intact, sensation altered at RUE, right torso/abdomen and RLE. MS 4/5 with flexion and extension of forearms as well as flexion and ext ension of feet, all else 5/5 intact Principal Diagnosis Multiple sclerosis Discharge Exam General: Patient is standing with the assistance of a cane and appears in no acute distress. HEENT: Non-erythematous oropharynx; no lymphadenopathy; normal dentition. CV: Regular rate and rhythm. Normal S1 and S2. No murmurs gallops or rubs. No pedal edema. Pulmonary: Lungs are clear to auscultation bilaterally. No crackles, rhonchi, or wheezes. Abdomen: Soft, nondistended abdomen. No bruits heard on auscultation. No tenderness to deep palpation. No guarding or rebound. MSK: 3/5 strength at left hip, left knee, and left ankle joints. 5/5 strength in right lower extremity at the hip, and knee. Neuro: No focal findings in CN IIXII. Hyperreflexic at biceps, triceps, and patellar joints bilaterally. Focal left-sided dysmetria on finger-nose test. Unsteady, wide-based gait. Focal hypersensitivity to temperature, general sensation in the right lower extremity, distal >proximal. Psych: Alert and oriented x3. Congruent mood and affect. Discharge Data Allergies Allergy/AdvReac Type Severity Reaction Status Date / Time Sulfa (Sulfonamide Allergy Intermediate HIVES Verified 04/16/22 17:23 Antibiotics) adhesive tape Allergy Mild Rash Verified 04/17/22 02:14 Consultations 04/16/22 23:05 ED Decision to Admit Stat 04/17/22 01:38 Consult Neurology Routine Ordered Studies 04/16/22 16:38 CT head/brain wo con Stat 04/16/22 18:22 MR brain MS wo/w con Stat 04/18/22 19:36 MR cervical spine wo/w con Routine 04/18/22 19:37 MR thoracic spine wo/w con Routine Hospital Course (1) Demyelinating disease: 36yo female presenting with complaint of paresthesias, LE weakness, difficulty with ambulation, some minor changes in speech. Symptoms have been ongoing and evolving since 04/07/22. Patient had previous episode of unexplained neurological complaints in October 2021. Multiple sclerosis -TSH, Lyme, CK wnl. JOSTIN negative -CT head- white matter hypodensities including in frontal lobe suggestive of demyelination -MRI brain- hyperintense foci of brain and cervical spine suggesting demyelinating plaques, suspicious for multiple sclerosis -MRI cervical spine: Demyelinating lesions at C2/C3 -MRI thoracic spine: Demyelinating plaque at T5/T6 -Neurology consulted: * IV Solumedrol 1g daily x5 days total * Discharged home on oral prednisone taper x18 days: * 80 mg x 3 days * 60 mg x 3 days * 40 mg x 3 days * 30 mg x 3 days * 20 mg x 3 days * 10 mg x 3 days * No need for lumbar puncture. GERD * Home famotidine Anxiety * Continue home Ativan 0.5 mg as needed. Total Time Total Time Spent Total Time Spent (In Minutes): <30 Discharge Plan Discharge Items Patient Disposition: Home - Self-Care Reason For Visit: AMBROSE Discharge Diagnosis: Multiple sclerosis Activity: Per Instructions section Non-emergency contact: Primary Care Provider and Neurologist Call non-emergency contact if: you have any medication questions and your symptoms worsen Follow-up/Referrals: Josiane Guevara MD [Primary Care Provider] - Kwesi Montes De Oca MD [Physician] - 05/10/22 9:20 am (With Martha Gonzalez PA-C Please arrive at 0905, thank you!) Diet: Regular Addtl Attending Provider Instructions: You were admitted to the hospital for sudden numbness and weakness in your arms and legs. You were evaluated with MRIs of your brain and spine, and were treated with IV steroids. A discharge summary will be sent to your primary care physician to ensure continuity of care. Please bring this discharge summary with you to your next office appointment so that your provider can review it at that time. Follow-up appointments: * Make a follow-up appointment with your PCP and neurologist within the next week. It is very important that you follow up with them shortly after discharge from the hospital. * Keep all your follow-up appointments as already scheduled. If you cannot make an appointment, notify your provider. Medications: Your medication list has been reviewed and reconciled upon discharge to ensure accuracy and continuity of care. An updated list of all your medications is included with your hospital discharge paperwork. Please review this list closely, and make note of any changes. * We sent a new medication called Prednisone 20 mg to your pharmacy. You will be taking it at a tapered, or gradually reduced dosing schedule, for the next 18 days as follows: * (04/22-04/24): 80 mg (4 tablets) for 3 days, then * (04/25-04/27): 60 mg (3 tablets) for the next 3 days, then * (04/28-04/30): 40 mg (2 tablets) for the next 3 days, then * (05/01-05/03): 30 mg (1.5 tablets) for the next 3 days, then * (05/04-05/06): 20 mg (1 tablet) for the next 3 days, then * (05/07-05/09): 10 mg (0.5 tablet) for the next 3 days, then STOP. Take your medications as instructed; do not skip a dose of your medicines. Make sure all of your doctors know every medicine you are taking (including [id number] medicines, vitamins, and supplements). Call your primary care provider before taking any new medicines (including hnrw-[id number] medicines, vitamins, and supplements), because some of these may interact with your current medications, or may make your symptoms worse. Tell your primary care provider if you cannot afford your medications. CONTACT YOUR PRIMARY CARE PROVIDER if you experience any of the following: * Sudden weakness, or fatigue, that does not improve with rest * Numbness or tingling. * Visual impairment, loss of balance, or dizziness * Urinary bladder urgency * Increasingly depressed mood * Difficulty following your treatment plan, or difficulty taking medications CALL 911 OR GO TO THE EMERGENCY DEPARTMENT if you experience any of the following: * Sudden, severe abdominal pain or nausea/vomiting * Severe chest pain, or chest pain that radiates (moves) to your jaw or arm * Sudden, severe shortness of breath or difficulty breathing Thank you for allowing us to participate in your care. Pending Studies at Discharge: No Stand-Alone Forms: My [facility], Smoking Cessation Medications and DC Order Prescriptions: New prednisone 20 mg tablet See Rx Instructions .ROUTE .COMPLEX Qty: 36 RF: 0 Continued norethindrone ac-eth estradiol [Kelly 12/16 (21)] 1-20 mg-mcg tablet 1 tab PO DAILY Qty: 63 RF: 3 cholecalciferol (vitamin D3) 1,250 mcg (50,000 unit) capsule 50,000 unit PO .COMPLEX 90 Days Qty: 12 RF: 0 loratadine 10 mg tablet 10 mg PO DAILY RF: 0 lorazepam 0.5 mg tablet 0.5 mg PO DAILY PRN (Reason: Anxiety) RF: 0 famotidine 40 mg tablet 40 mg PO PM Qty: 90 RF: 3 fluoxetine 10 mg capsule 10 mg PO DAILY RF: 0 cyclobenzaprine 10 mg tablet 10 mg PO TID PRN (Reason: muscle spasm) Qty: 14 RF: 0 Discharge Orders: Discharge Order (Routine); Ordered 04/21/22 Ordered By: Shawn Horn Admission Data Admit Date/Time: 04/20/22 09:12 Attending Provider: Luis Segura Admit Provider: Denice Senior Primary Care Provider: Josiane Guevara Other Providers: Denice Senior ; Kwesi Montes De Oca Other Interventions: Discharge Summary Assessment (RN) Last Done: 04/21/22 11:02 Supervising Physician Co-Signing Physician Notes I personally examined the patient and verified all johnson points of history and exam, discussed case, and agree with decision making with Dr Horn feels up to going home. discussed next steps in treatment, follow up, etc. vitals noted nad heent nc at mmm breathing unlabored no accessory muscles good effort skin no rashes no pallor or icterus demyelination -most c/w new MS. fortunately is showing improvement w steroids - continue w PO prednisone taper D deficiency, B12 insufficiency - replace. given low on both - for completeness also rec'd iron studies - but not sure what effect large doses of steroids might have on ferritin - so would do so as outpt after off steroids for a while otherwise as above Resident Activity Tracking Resident Involvement: Resident Care Provided Care Provided: Adult Hospital Medicine
--- NOTE | 2022-04-21 18:59 | Billing Data ---
Date of Service April 21, 2022 Coding Level of Care Code D/C DAY MANAGEMENT <30 MINS
== END 2022-04-21 15:14 | disposition home or self-care (01) | DRG 59 ==
LOC: 3N 15:12 → ED 15:12 → SUATTDRO 23:37 → 3N 04-17 00:50